=== PATIENT | male | born 1940 | race Caucasian/White ===

== ENCOUNTER → 2017-05-08 | Outpatient (CLI) | payer MEDICARE, OTHER ==
[~2017-05-08] MED LIST: ACETAMINOPHEN325 M1; ACETAMINOPHEN325 M1 PO; ALPRAZOLAM; ALPRAZOLAM 0.50.5 MG PO; AMBIEN 5 MG TABL5 M1 PO; AMBIENCR PO; ASCORBIC ACID500 M1; B COMPLEX PO; BENICAR20 MG; BENICAR20 MG PO; CALCIUM 600 +1 EAC1 PO; CALCIUM PO; CLONAZEPAM 1 MG1 M1 PO; COUMADIN 10MG T10 M1; COUMADIN 5 MG TA5 M1 PO; DOXYCYCLINE HY100 MG PO; ENOXAPARIN100 MG/1 M; ENOXAPARIN100 MG/1 M SQ; EXCEDRIN CAPLE1 EACH PO; FISH OIL 1,0001 EAC7 PO; FISH OIL 1,0001 EAC8 PO; FISH OIL 1,001000 M2 PO; FLONASE 0.05%50 MCG NASAL; FLUCONAZOLE 10100 MG; FLUCONAZOLE 10100 MG PO; FUROSEMIDE 40 M40 M1; FUROSEMIDE 40 M40 M1 PO; HYDROCODONE-AP1 EAC6 PO; IBUPROFEN200 M2 PO; IRON PO; K-DUR 20 MEQ T20 MEQ; K-DUR 20 MEQ T20 MEQ PO; KONSYL; KONSYL PO; KONSYL300 GM PO; LYRICA 75 MG CA75 MG; MEDROL DOSPAK21 TA1 PO; MIRALAX255 GM PO; MOBIC15 MG PO; MOM PO; MULTI-VITAMIN1 EAC5; MULTIVITAMIN PO; MULTIVITAMINS1 EAC7 PO; NEURONTIN 300300 M1 PO; NEXIUM40 MG PO; OMEPRAZOLE-BIC1 EAC1; OMNARIS NASAL; PERCOCET 5-3251 EACH PO; POLYETHYLENE G255 GM; PREDNISONE 20 M20 M1 PO; PRILOSEC40 MG PO; PROMETHAZINE-C120 ML PO; TESSALON PEARLS; TRAMADOL 50 MG50 MG PO; TRILEPTAL150 MG PO; VENTOLIN HFA 1818 GM INH; VIT D3; VITAMINC500 PO; XANAX 0.25 MG0.25 MG PO; XANAX 0.5 MG0.5 MG PO; ZANTAC 150MG T150 MG PO; ZEGERID OTC 201 EACH PO
--- NOTE | 2017-05-10 09:35 | PAINCON ---
[address] [address] PAIN MANAGEMENT CONSULTATION Name: JAZMYN JUSTICE Room: [facility] Haroldo#: [id number] Admission: 05/08/17 Attend Phys: Andrew Kendall Discharge: Date of : 42 Report #: [id number] THIS REPORT FOR: //name// CC: Tino Tim PAIN CLINIC PROCEDURE The patient is a very pleasant 77-year-old gentleman being treated for lumbar radiculopathy, status post extensive decompressive laminectomy and fusion. The patient was seen in the pain clinic on 04/24/2017. We withheld the interventional therapy as he had an appointment to see his back surgeon. 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 Per the patient, (we do not have documentation from Dr. Weir at present). He suggested extending the fusion to include the L1-L2 level. We did review the lumbar spine CT myelogram from 04/08/2017. It does note some mild dextroscoliosis fusion L2 through L5 with bilateral transpedicular screws. The L1-L2 notes narrowing of the spinal canal down to 6 mm in the AP dimension, clumping of the nerve roots here as a result with mild retrolisthesis. Ligamentum flavum hypertrophy is more prominent on the left. Bilateral neural foraminal narrowing. Fusion is noted through L5. L5-S1 notes mild degenerative endplate spurring with diffuse disk bulging, severe facet arthropathy, worse on the right, moderate on the left. The patient presents to the pain clinic today complaining primarily of pain, posterior thigh gluteal area down to the leg, exacerbated with side bending. Appears to be a primary L5 radicular pattern clinically. He had excellent relief with bilateral L5-S1 transforaminal epidural injections back in December. He is requesting that we repeat this injection for transient improvement of symptoms to get through the holidays. He has a followup appointment with Dr. Weir in May. ASSESSMENT: Symptomatic lumbar radiculopathy, status post decompressive laminectomy. PROCEDURE: Bilateral L5-S1 transforaminal epidural injection under fluoroscopy. PROCEDURE #1: Right L5-S1 transforaminal epidural injection. PROCEDURE NOTE: After both written and informed consent was obtained including risk of spinal cord damage, infection, increased pain and paralysis, the patient agreed to proceed. The patient was taken to the fluoroscopy suite, placed in a prone position with appropriate abdominal bolstering. After sterile prep with ChloraPrep and sterile drape, a skin wheal with 1% Xylocaine was raised. A [address] [place] [address] PAIN MANAGEMENT CONSULTATION Name: JAZMYN JUSTICE Room: [facility] MARY BETH [place]#: [id number] Admission: 05/08/17 Attend Phys: Andrew Kendall Discharge: Date of : 42 Report #: [id number] gauge 4-1/2 inch epidural Tuohy needle was inserted. From an oblique approach into the posterior-superior aspect of the right L5-S1 neural foramen with continuous pressure on the glass syringe plunger for loss of resistance. Glass syringe was filled with 2 cc of 0.1 Xylocaine. The glass loss of resistance syringe was removed. A low volume extension tubing was connected, negative aspiration was accomplished for cerebrospinal fluid or blood. 1 mL of Omnipaque was injected which showed spread both within the epidural space and laterally along the nerve root. This was followed with 40 mg of triamcinolone plus 1 mL of 1.5% preservative-free Xylocaine. Needle was partially withdrawn, 0.5 mL of Xylocaine was injected to clear the needle and the needle was removed. The area was cleansed, band-aid was applied. The patient was allowed to ambulate to the recovery room, discharged in good and stable condition. PROCEDURE #2: Left L5-S1 transforaminal epidural injection under fluoroscopy. PROCEDURE NOTE: After both written and informed consent was obtained including risk of spinal cord damage, infection, increased pain and paralysis, the patient agreed to proceed. The patient was taken to the fluoroscopy suite, placed in a prone position with appropriate abdominal bolstering. After sterile prep with ChloraPrep and sterile drape, a skin wheal with 1% Xylocaine was raised. A 22 gauge 4-1/2 inch epidural Tuohy needle was inserted. From an oblique approach into the posterior-superior aspect of the left L5-S1 neural foramen with continuous pressure on the glass syringe plunger for loss of resistance. Glass syringe was filled with 2 cc of 0.1 Xylocaine. The glass loss of resistance syringe was removed. A low volume extension tubing was connected, negative aspiration was accomplished for cerebrospinal fluid or blood. 1 mL of Omnipaque was injected which showed spread both within the epidural space and laterally along the nerve root. This was followed with 40 mg of triamcinolone plus 1 mL of 1.5% preservative-free Xylocaine. Needle was partially withdrawn, 0.5 mL of Xylocaine was injected to clear the needle and the needle was removed. The area was cleansed, band-aid was applied. The patient was allowed to ambulate to the recovery room, discharged in good and stable condition. The patient was monitored for an appropriate period of time and discharged in good and stable condition. <ELECTRONICALLY SIGNED> By: Ciro Tim DO 05/10/17 0935 [id number] [id number] Tim DO /nt
== END | disposition home or self-care (01) ==
LOC: M.PC 03:35
DX: M54.16 Radiculopathy, lumbar region (principal); G89.29 Other chronic pain; Z88.8 Allergy status to other drugs, medicaments and biological substances; Z98.890 Other specified postprocedural states; Z79.899 Other long term (current) drug therapy

== ENCOUNTER 2017-06-26 15:42 | Inpatient (IN) | payer MEDICARE, OTHER ==
[~2017-06-26] VITALS: Ht 175.3 cm; Wt 118.8 kg
[~2017-06-26 15:42] MED LIST changes: -CLONAZEPAM 1 MG1 M1 PO; -FLONASE 0.05%50 MCG NASAL; -HYDROCODONE-AP1 EAC6 PO; -NEXIUM40 MG PO; -TRAMADOL 50 MG50 MG PO
[2017-06-26 15:46] VITALS: BP 172/63
[2017-06-26] MEDS ORDERED: NEXIUM40 MG PO (15:50)
[2017-06-26] MEDS ORDERED: FLONASE 0.05%50 MCG NASAL (15:51)
[2017-06-26 16:15] LABS: ABSOLUTE BASOPHILS 0.1 thou/uL (0.0-0.2); ABSOLUTE EOSINOPHILS 0.2 thou/uL (0.0-0.7); ABSOLUTE LYMPHOCYTES 2.3 thou/uL (0.8-5.3); ABSOLUTE MONOCYTES 0.8 thou/uL (0.0-1.2); ABSOLUTE NEUTROPHILS 4.5 thou/uL (1.6-8.1); BASOPHILS 1.6 %; EOSINOPHILS 2.4 %; HEMOGLOBIN 16.5 gm/dL (14.0-18.0); LYMPHOCYTES 28.9 %; MCHC 33.6 g/dL (28.0-37.0); MCV 95.3 fL (80.0-100.0); MONOCYTES 10.4 %; MPV 8.6 fl. (7.2-11.1); NUCLEATED RBCS 0 /100WBC; PLATELET COUNT* 177 thou/uL (150-400); POLYS 56.7 %; RBC 5.14 mil/uL (4.50-6.00); RDW-CV 14.1 % (10.5-14.5); WBC 7.9 thou/uL (4.0-11.0)
--- NOTE | 2017-06-26 16:27 | NUR ---
DR. UNDERWOOD IN PT'S ROOM
[2017-06-26 16:28] LABS: INR 1.1; PROTIME 10.7 Seconds (9.20-11.50)
[2017-06-26 16:39] LABS: ANION GAP 9 mmol/L (7-16); BUN 18 mg/dL (7-18); CALCIUM 8.8 mg/dL (8.5-10.1); CHLORIDE 107 mmol/L (98-107); CO2 27 mmol/L (21-32); CREATININE 1.1 mg/dL (0.6-1.3); GLUCOSE 98 mg/dL (70-99); POTASSIUM 4.2 mmol/L (3.5-5.1); SODIUM 143 mmol/L (136-145)
[2017-06-26 17:06] LABS: ALKALINE PHOSPHATASE 76 U/L (46-116); LIPASE 166 U/L (73-393); MAGNESIUM 1.9 mg/dL (1.8-2.4); SGOT 15 U/L (15-37); SGPT 21 U/L (30-65); TOTAL BILIRUBIN 0.5 mg/dL (<0.1-1.0)
[2017-06-26 17:07] LABS: ALBUMIN 3.4 g/dL (3.4-5.0); TOTAL PROTEIN 6.8 g/dL (6.4-8.2)
[2017-06-26 17:08] LABS: TROPONIN-I LEVEL <0.06 ng/mL (<0.06)
[2017-06-26 17:51] LABS: NT-PRO BRAIN NAT PEPTIDE 92 pg/mL (<300)
[2017-06-26 18:13] LABS: CK-MB MASS 0.6 ng/mL (<0.5-3.6)
--- NOTE | 2017-06-26 18:39 | NUR ---
PT ADMITED TO TELE FLOOR UNDER THE CARE OF DR SPANN. PT ORIENTED TO UNIT AND SERVICES. FOOD AND DRINK OFFERED. NURSING ASSESSMENT COMPLETED AND DOCUMENTED. PT HR IN THE 30'S TO 40'S W/O C/O SYMPTOMS SUCH BEING DIZZY. PT HAS NO C/O PAIN AT THIS TIME. SEPSIS SCREEN NEG. PT EDUCATED ON ACTIVITY AND FALL PREVENTION, CURRENTLY TRACING SB WITH A BBB ON THE MONITOR. PT HAS NO IMPAIRED SKIN INTEGRITY AND DENIES AND ISSUES WITH BOWEL OR BLADDER CONTROLL ISSUES. NURSING WILL CONTINUE TO MONITOR.
[2017-06-26 20:00] VITALS: BP 133/74
--- NOTE | 2017-06-26 20:00 | NUR ---
CALL PLACED TO CARDIO-AUTO SERVICE MECHANIC REGARDING NO ORDERS NOTED FOR PM PLACEMENT TOMORROW. DR LEBLANC CALLED BACK, INFORMED HIM OF PT'S ADMIT DX, DAY-RN'S REPORT OF PM PLACEMENT TOMORROW, AND INFORMED DR LEBLANC I DO NOT SEE ANY ORDERS FOR SUCH PROCEDURE TOMORROW. DR LEBLANC SAID TO MAKE PT NPO AFTER MIDNIGHT AND DR UNDERWOOD WHO SAW HIM IN THE ED CAN PUT IN ORDERS TOMORROW IF THAT'S WHAT HE'S DOING, DR LEBLANC ASKED WHAT PT'S HR IS AT, INFORMED HIM PT'S HR HAS BEEN IN THE 30'S AND HE IS ASYMPTOMATIC. NPO AT MIDNIGHT ORDER ENTERED.
[2017-06-27] VITALS: BP 148/77
--- NOTE | 2017-06-27 02:37 | NUR ---
PT A/OX4, SB 1D ON THE MONITOR WITH HR MAINTAINING IN THE 30'S, RA, PT REPORTED HE HAS NO DIZZINESS, SOA, DISCOMFORT, EDUCATED PT TO CALL USING CALL LIGHT WHEN HE WANTS TO GET UP TO USE THE BATHROOM OR TO AMBULATE DUE TO LOW HR, MEDS/ASSESSMENT PER CHARTING, HOURLY ROUNDING/FALL PRECAUTIONS IN PLACE, VSS WITH HR IN 30'S, NPO AT THIS POINT, WILL CONT TO MONITOR.
[2017-06-27 04:06] VITALS: BP 120/53
[2017-06-27 05:21] LABS: CALCIUM 8.8 mg/dL (8.5-10.1); CREATININE 1.1 mg/dL (0.6-1.3); MAGNESIUM 1.9 mg/dL (1.8-2.4); POTASSIUM 4.4 mmol/L (3.5-5.1)
[2017-06-27 08:00] VITALS: BP 141/73
--- NOTE | 2017-06-27 08:45 | NUR ---
RECEIVED REPORT. ASSUMED CARE OF PT AT 0730. PT A&O X4. VSS. O2 SAT 93% ON ROOM AIR. COMMUNICATION INSTRUCTOR IN PLACE TRACING SB WITH 1ST DEGREE. PT HR CONSISTENTLY DROPPING INTO THE 30'S AND MAINTAINING THERE - PT ASYMPTOMATIC. IV SALINE LOCKED. PT DENIES PAIN OR DISCOMFORT AT THIS TIME, BUT DOES REPORT A SIGNIFICANT HISTORY OF CHRONIC BACK PAIN AND RIGHT LEG PAIN. PT NPO FOR POTENTIAL PACEMAKER PLACEMENT TODAY. PT INFORMED OF PLAN OF CARE - PT COMMUNICATES UNDERSTANDING. PT UP WITH STANDBY ASSIST TO BATHROOM. LOW FALL RISK PRECAUTIONS IN PLACE. CALL LIGHT IS WITHIN REACH. WILL CONTINUE TO MONITOR.
--- NOTE | 2017-06-27 11:04 | NUR ---
CM ASSESSMENT: Pt is A&O. Resides at home with his . Independent with ADLs. No DME. Hx of home o2. Hx of [facility]. No hx of SNF. Possible pacer placement. Goal is to return home once medically stable for dc. Following.
--- NOTE | 2017-06-27 12:47 | CON ---
[address] [address] CONSULTATION Name: JAZMYN JUSTICE Room: [address] IN [facility]#: [id number] Admission: 06/26/17 Attend Phys: Ran Menendez MD Discharge: Date of : 42 Report #: [id number] THIS REPORT FOR: //name// CC: Vincent Tim DATE OF SERVICE: 06/26/2017 TYPE OF REPORT: Cardiology consultation. HISTORY OF PRESENT ILLNESS: The patient is a 77-year-old white male who I was asked to see seen in the hospital today after he was noted to be bradycardic. The patient has no previous history of heart disease. However, he is not very active because of chronic back pain. He apparently had a stress test years ago. He ambulates with a walker. He has had a total of 10 back surgeries. He denies history of chest pain, shortness of breath, palpitations or syncope. He does have chronic edema. He went to the pain clinic today to have an injection in his back. In the pain clinic, he was noted bradycardia. He was sent over to the Emergency Room and admitted for further evaluation and treatment. Denies any lightheadedness or syncope. Denied any recent tick bite. PAST MEDICAL HISTORY: Otherwise significant for neck surgery, uvulectomy for sleep apnea, shoulder surgery, appendectomy, apparently was admitted at one point with bronchitis of years ago, experience bilateral DVT and bilateral PE. He was on anticoagulation for a while and has an IVC filter placed. He has a history of hypertension, but no history of diabetes or hyperlipidemia. MEDICATIONS: Include Benicar, Lasix, potassium and Neurontin. ALLERGIES: He has intolerance to FLAGYL. FAMILY HISTORY: Positive for heart disease. SOCIAL HISTORY: He is . He and his live here in [place]. He is a retired business chef & owner. Quit smoking in 1998. No alcohol abuse. REVIEW OF SYSTEMS: He has had no history of stroke, asthma, peptic ulcer disease, liver disease, kidney disease, cancer, chronic skin condition or psychiatric illness. PHYSICAL EXAMINATION: GENERAL: Revealed a large and elderly male. VITAL SIGNS: He had a blood pressure of 150/60 and pulse is 40[place] [address] CONSULTATION Name: JAZMYN JUSTICE Room: [address]#: [id number] Admission: 06/26/17 Attend Phys: Ran Menendez MD Discharge: Date of : 41 Report #: [id number] HEENT: He is anicteric. Conjunctivae pink. Mucous membranes moist. NECK: Veins difficult to assess due to obesity. No carotid bruits. CHEST: Clear to auscultation. CARDIOVASCULAR: Regular bradycardia. No significant murmur. ABDOMEN: Obese, soft and nontender. EXTREMITIES: Had trace edema. Dorsalis pedis pulse 1+ bilaterally. SKIN: Cool and dry. RADIOLOGICAL DATA: His ECG appears to show sinus rhythm with 2:1 AV block, left anterior fascicular block and a right bundle-branch block. LABORATORY DATA: Workup in the Emergency Room today revealed a white blood cell count 7.9 and hemoglobin 16.5. IMPRESSION AND RECOMMENDATIONS: 1. A 2:1 atrioventricular block consistent with Mobitz type 2 second-degree atrioventricular block. Suspect idiopathic. The patient is on no medications that would slow atrioventricular node conduction. No evidence of acute myocardial infarction. No history to suggest Lyme disease. I suspect the patient will need a permanent pacemaker. 2. Hypertension. The patient has been on an adrenergic receptor binder. 3. Edema, recommend echo. 4. History of sleep apnea. 5. Chronic back pain. <ELECTRONICALLY SIGNED> By: Clive Benson MD, FACC 06/27/17 1247 1640 2015Clive Benson MD, FACC /nt
--- NOTE | 2017-06-27 14:29 | 2DMMODE ---
[place] [address] 2 D/M-MODE ECHOCARDIOGRAM Name: JAZMYN JUSTICE Room: [address] IN [facility]#: [id number] Admission: 06/26/17 Attend Phys: Ran Menendez, Discharge: Date of : 42 Date of Service: 06/27/17 1429 Report #: [id number] THIS REPORT FOR: //name// APPROVED REPORT Study performed: 06/27/2017 11:46:36 EXAM: Comprehensive 2D, Doppler, and color-flow Echocardiogram Patient Location: In-Patient Room #: 210 Status: routine BSA: 2.28 HR: 51 bpm BP: 120/53 mmHg Rhythm: NSR Other Information Study Quality: Good Indications Abnormal ECG Bradycardia 2D Dimensions LVEF(%): 76.05 (>50%) IVSd: 14.73 (7-11mm) LVOT Diam: 19.79 (18-24mm) LVDd: 49.99 mm PWd: 12.62 (7-11mm) Ascending Ao: 40.22 (22-36mm) LVDs: 27.51 (25-40mm) Aortic Root: 35.03 mm Bates's LVEF: 76.05 % Volumes Left Atrial Volume (Systole) LA ESV Index: 21.00 mL/m2 Aortic Valve AoV Peak Brian.: 1.67 m/s AO Peak Gr.: 11.22 mmHg LVOT Max P.27 mmHg AO Mean Gr.: 6.56 mmHg LVOT Mean P.79 mmHg LVOT Max V: 1.25 m/s AO V2 VTI: 38.71 cm LVOT Mean V: 0.77 m/s ANNAMARIA (VTI): 2.21 cm2 LVOT V1 VTI: 27.82 [place] [address] 2 D/M-MODE ECHOCARDIOGRAM Name: JAZMYN JUSTICE Room: [address] IN [facility].#: [id number] Admission: 06/26/17 Attend Phys: Ran Menendez, Discharge: Date of : 42 Date of Service: 06/27/17 1429 Report #: [id number] E/A Ratio: 0.76 MV Decel. Time: 348.09 ms MV E Max Brian.: 0.70 m/s MV PHT: 100.94 ms MVA (PHT): 2.18 cm2 TDI E/Lateral E': 7.00 E/Medial E': 7.78 Medial E' Brian.: 0.09 m/s Lateral E' Brian.: 0.10 m/s Pulmonary Valve PV Peak Brian.: 0.88 m/s PV Peak Gr.: 3.10 mmHg Tricuspid Valve TR Peak Gr.: 24.14 mmHg RVSP: 29.00 mmHg Left Ventricle The left ventricle is normal size. There is normal LV segmental wall motion. Mild concentric left ventricular hypertrophy. Left ventricular systolic function is normal. LVEF is 55-60%. Grade I - abnormal relaxation pattern. Right Ventricle The right ventricle is normal size. The right ventricular systolic function is normal. Atria The left atrium size is normal. The right atrium size is normal. Aortic Valve The aortic valve is normal in structure. Trace aortic regurgitation. There is no aortic valvular stenosis. Mitral Valve The mitral valve is normal in structure. Trace mitral regurgitation. No evidence of mitral valve stenosis. Tricuspid Valve The tricuspid valve is normal in structure. Trace tricuspid regurgitation. The RVSP is ___29____ mmHg. Pulmonic Valve The pulmonary valve is normal in structure. There is no pulmonic [place] [address] 2 D/M-MODE ECHOCARDIOGRAM Name: JAZMYN JUSTICE Room: [address]#: [id number] Admission: 06/26/17 Attend Phys: Ran Menendez, Discharge: Date of : 42 Date of Service: 06/27/17 1429 Report #: [id number] Great Vessels The aortic root is normal in size. IVC is normal in size and collapses with >50% inspiration Pericardium There is no pericardial effusion. <Conclusion> The left ventricle is normal size. Mild concentric left ventricular hypertrophy. Left ventricular systolic function is normal. LVEF is 55-60%. Grade I - abnormal relaxation pattern. Trace aortic regurgitation. Trace mitral regurgitation. Trace tricuspid regurgitation. The RVSP is ___29____ mmHg. IVC is normal in size and collapses with >50% inspiration <ELECTRONICALLY SIGNED> By: Bunny Nava MD, FACC 06/27/17 [phone] Bunny Nava MD, FACC /INF
--- NOTE | 2017-06-27 14:32 | EKG ---
[place] [address] ELECTROCARDIOGRAM REPORT Name: JAZMYN JUSTICE Room: [address] ADM IN .R.#: [id number] Admission: 06/26/17 Attend Phys: Ran Menendez MD Discharge: Date of : 41 Report #: [id number] THIS REPORT FOR: //name// [facility] ED Test Date: 2017-06-26 Test Time: 15:48:33 Pat Name: JAZMYN JUSTICE Department: Room: [facility] Gender: M Assistant To The Director: Jacqueline CARTER : 1940 Requested By: Calixto Roberts Order Number: [id number] MD: Clive Benson Measurements Intervals [place] Rate: 37 P: 25 CT: 223 QRS: -59 QRSD: 159 T: 76 QT: 542 QTc: 426 Interpretive Statements 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
[2017-06-27 16:00] VITALS: BP 137/65
--- NOTE | 2017-06-27 19:04 | NUR ---
VSS. 02 SAT >90% ON ROOM AIR. PT REMAINS A&OX4. MEDIA/INSTRUCTIONAL DESIGNER IN PLACE WITH NO CHANGES THIS SHIFT. HR CONTINUES TO DROP TO THE 30'S, PT REMAINS ASYMPTOMATIC. PT TO HAVE PACEMAKER PLACEMENT TOMORROW. PT TO BE NPO AFTER MIDNIGHT. IV SALINE LOCKED. PT CONTINUES TO DENY PAIN OR DISCOMFORT THROUGHOUT THE SHIFT. VISITED THIS AFTERNOON. PT EATING AND DRINKING WITHOUT ISSUE. PT UP AD JS TO THE BATHROOM - VOIDING WITHOUT ISSUE. LOW FALL RISK PRECAUTIONS IN PLACE. CALL LIGHT IS WITHIN REACH. HOULRY ROUNDING PERFORMED.
[2017-06-27 20:00] VITALS: BP 143/93
[2017-06-28] VITALS (8 sets, daily range): BP systolic 115–138; BP diastolic 50–84
[2017-06-28 05:48] LABS: CALCIUM 9.2 mg/dL (8.5-10.1); CREATININE 1.2 mg/dL (0.6-1.3); POTASSIUM 5.2 mmol/L (3.5-5.1)
--- NOTE | 2017-06-28 06:39 | NUR ---
NO ACUTE CHANGES WITH PT OVER NIGHT, PT REMAIN A/OX4, SB 1D BBB WITH HR IN THE LOW 30'S, ASYMPTOMATIC, RA, VSS, UP WITH SBA TO THE BATHROOM, MEDS/ASSESSMENT PER CHARTING, HOURLY ROUNDING/FALL PRECAUTIONS IN PLACE, CONSENT FOR PACE MAKER PLACEMENT COMPLETED AND PLACED ON CHART, 1/2NS INFUSING PER ORDERS, PT REPORTED NO PAIN/SOA/DIZZINESS OVER NIGHT, WILL CONT TO MONITOR.
--- NOTE | 2017-06-28 11:24 | NUR ---
ASSUMED CARE OF PT AT 0730. PT RESTING IN BED. PT A&0X4. DENIES ANY PAIN OR SHORTNESS OF BREATH AT THIS TIME. PT NPO FOR PACEMAKER PLACEMENT TODAY. CONSENTS SIGNED AND PLACED IN FRONT OF CHART. PT TRACING SB WITH FIRST DEGREE AND BBB ON THE NATURAL HISTORY COLLECTIONS CURATOR. RATE IN THE 30'S. PT ASYMPTOMATIC. PT ON RA SAT 93%. IVF. PT UP WITH 1 SBA. HUMANITIES INSTRUCTOR HERE TO GET PT AT 0850. 20G IV PLACED IN PT LEFT HAND PER HUMANITIES INSTRUCTOR RN REQUEST. AM ASSESSMENT CHARTED. MEDICATIONS PER JUL. PT REPOSITIONS SELF IN BED WITH REMINDERS. HOURLY ROUNDING OBSERVED. BED IN LOW POSITION. BED ALARM IN PLACE. CALL LIGHT WITHIN REACH. WILL CONTINUE PLAN OF CARE.
--- NOTE | 2017-06-28 15:14 | EKG ---
[place] [address] ELECTROCARDIOGRAM REPORT Name: JAZMYN JUSTICE Room: [address] ADM IN [facility].#: [id number] Admission: 06/26/17 Attend Phys: Ran Menendez MD Discharge: Date of : 42 Report #: [id number] THIS REPORT FOR: //name// [facility] Test Date: 2017-06-28 Test Time: 14:31:09 Pat Name: JAZMYN JUSTICE Department: Room: [address] Gender: M [employer] Groom: [facility] : 1940 Requested By: Lisa Case Order Number: [id number] MD: Clive Benson Measurements Intervals [place] Rate: 60 P: 0 OR: 53 QRS: 262 QRSD: 176 T: 68 QT: 491 QTc: 491 Interpretive Statements Ventricular-paced complexes No further analysis attempted due to paced rhythm Compared to ECG 06/26/2017 15:48:33 ventricular paced rhythm now noted Electronically Signed On 06-28-2017 15:14:16 HELP DESK REP by Clive Benson [email or web address] <ELECTRONICALLY SIGNED> By: Clive Benson MD, [facility] 06/28/17 1514 1431 1431 Clive Benson MD, [facility] /EPI
--- NOTE | 2017-06-28 15:43 | NUR ---
PT BACK FROM PACEMAKER PLACEMENT AT APPROXIMATELY 1300. VSS. REPORT RECEIVED FROM WASTE SALVAGER RN. LEFT CHEST SITE- DERMABOND IN PLACE. LEFT UPPER EXTREMITY IN SLING. ONE LEAD PLACED PER WASTE SALVAGER TECHNICAL HEALTHCARE CONSULTANT AND PT WILL NEED ANOTHER LEAD PLACED OUTPT. PT IS TO BE BEDREST UNTIL 0800 2/3, AREA TO LEFT CHEST TO REMAIN CLEAN AND DRY- NO DRESSING, LEFT ARM TO REMAIN IN SLING AND NOT TO BE LIFTED ABOVE SHOULDER X 1 [address]EEK. CARDIAC REHAB CONSULT IN PLACE. PT GIVEN AM MEDICATIONS PER EMAR. PT COMPLAINED OF GENERALIZED PAIN. TREATED WITH PRN HYDROCODONE WITH PARTIAL RELIEF. AT APPROXIMATELY 1415 PT COMPLAINED OF SHARP CHEST PAIN WHILE BREATHING. VSS. EKG OBTAINED TRACING V PACED. JAZMIN CORMIER, CARDIOLOGY BRADDISHER NOTIFIED. ORDERS RECEIVED FOR STAT PORTABLE CXR. RESULTS SHOWING SMALL SIDE LEFT PNEUMO. JAZMIN CASE NOTIFIED OF RESULTS AND STATED WILL PASS ON TO DR UNDERWOOD. PT STATES PAIN HAS CURRENTLY GOTTEN BETTER. PT RESTING IN BED WITH DAUGHTER AND AT BEDSIDE AT THIS TIME. AWAITING DR FUNEZ VISIT AT THIS TIME. WILL CONTINUE TO MONITOR CLOSELY.
--- NOTE | 2017-06-28 17:16 | NUR ---
NO ACUTE CHANGES THROUGHOUT AFTERNOON. REFER TO CHARTING. AWAITING DR UNDERWOOD ARRIVAL AT THIS TIME. PT PAIN HAS SLIGHTLY IMPROVED THROUGHOUT AFTERNOON. VITAL SIGNS REMAIN STABLE THROUGHOUT AFTERNOON REFER TO CHARTING. PT REMAINS ON RA SAT UPPER 90'S. DENIES ANY SHORTNESS OF BREATH. PT CONTINUES TO TRACE SR WITH BBB/ V- PACED ON THE HEMATOLOGY SPECIALIST. SLING IN PLACE TO LEFT UPPER EXTREMITY. BEDREST UNTIL 0800 06/29/17. PT VOIDS PER URINAL. INPT CARDIAC REHAB NURSE HERE TO SEE AND EDUCATE PT THIS AFTERNOON. MEDICATIONS PER JUL. PT REPOSITIONS SELF IN BED WITH REMINDERS. HOURLY ROUNDING OBSERVED. BED IN LOW POSITION. CALL LIGHT WITHIN REACH. WILL CONTINUE PLAN OF CARE.
[2017-06-29 00:32] VITALS: BP 99/48
[2017-06-29 04:07] VITALS: BP 124/61
--- NOTE | 2017-06-29 04:44 | NUR ---
END SHIFT: PT HAS HAD EPISODES OF SHARP CHEST PAIN WORSE WITH BREATHING AND MOVEMENT ON LEFT SIDE. SUPPORTED AND EDUCATED PATIENT. PAIN PILL GIVEN WITH GOOD RESULT. 2L NC APPLIED FOR COMFORT. POSITION CHANGES AND STRAINING AFFECT PAIN. INCISION IS DRY AND INTACT. VSS. SLIN REMAINS IN PLACE. V PACED ON MONITOR RATE 60. SAFETY PRECAUTIONS IN PLACE. CALL LIGHT IN REACH. PERFORMED HOURLY ROUNDING. AWAITING CHEST XRAY THIS AM. WILL CONT TO MONITOR.
[2017-06-29 08:00] VITALS: BP 115/50
--- NOTE | 2017-06-29 08:30 | NUR ---
ASSUMED CARE OF PT AT 0730. PT RESTING IN BED. PT COMPLAINS OF PAIN TO CHEST AND LEFT SIDE. PT ALSO COMPLAINS OF SHORTNESS OF BREATH NEW THIS AM. 02 SAT 90% ON RA. 2L NC PLACED ON PT AND SAT UP TO 95%. LUNG SOUNDS CLEAR ON RIGHT AND DIMINISHED ON THE LEFT. DR SPANN HERE TO SEE PT. ORDERS RECEIVED FOR IV FENTANYL 50 MCG Q2H PRN AND HYDROCODONE CHANGED TO Q4H PO PRN PAIN. PT TO HAVE REPEAT CXR THIS AM TO CHECK STATUS OF LEFT PNEUMOTHORAX. DR UNDERWOOD HERE TO SEE PT. NO NEW ORDERS RECEIVED. PT TO STAY IN HOSPITAL TODAY AND BE OBSERVED. PT TO INCREASE ACTIVITY TODAY AND MANAGE PAIN. PT A&0X4, ANXIOUS AT TIMES. PT TRACING V-PACED ON THE DEPARTMENT EDITOR. LEFT CHEST PACEMAKER INCISION SITE WITH DERMABOND. SLING IN PLACE. PT UP WITH MIN ASSIST. STERNAL/ PACEMAKER PRECAUTIONS IN PLACE AND PT REINFORCED ON PRECAUTIONS. PT SON FROM [place] AT BEDSIDE THIS AM. AM ASSESSMENT CHARTED. MEDICATIONS PER JUL. PT REPOSITIONS SELF IN BED WITH REMINDERS. HOURLY ROUNDING OBSERVED. BED IN LOW POSITION. BED ALARM IN PLACE. FALL PRECAUTIONS IN PLACE. CALL LIGHT WITHIN REACH. WILL CONTINUE PLAN OF CARE.
--- NOTE | 2017-06-29 09:25 | CARD ---
[address] [address] CARDIAC CATH REPORT Name: DARIUSZJAZMYN Daksha Room: [address] IN ..#: [id number] Admission: 06/26/17 Attend Phys: Ran Menendez MD Discharge: Date of : 42 Report #: [id number] THIS REPORT FOR: //name// APPROVED REPORT Patient Status: In-Patient Room #: Event Personnel: Clive Benson Auto Air Conditioning Installer, Caroline Mishra RN Chief Of Production, Maria Antonia Rivera Monitor, Otto Masterson (Gaye Mcdermott Tina RN Chief Of Production Exam: Insertion of Single Chamber Permanent Pacemaker Indications: 2nd Degree Mobitz II The patient is a 77 year-old male with a history of 2nd Degree Mobitz II. Patient Info BUN: 17 Creatine: 1.2 Conscious Sedation Start time: 09:53 End Time: 12:38 Fentanyl 300 mcg Versed 7 mg Procedure The patient underwent informed consent. We discussed the details of the procedure including the risks, which include, but not limited to bleeding, infection, vascular damage, cardiac perforation, and pneumothorax. He understood these risks and was willing to proceed. As such, he was brought to the EP/Cardiac Catheterization laboratory in a fasting and sedated state and prepped and draped in a sterile fashion, received IV antibiotics prior to initiation of the procedure and a venogram was performed showing patency of the left axillary vein. The patient underwent conscious sedation, with no related complications. The patient was brought to the EP/Cardiac Catheterization laboratory and the left chest and shoulder were prepped and draped in a sterile manner. During this case, Fluoroscopy and visipaque 20cc were used for imaging. The left subclavian region was infiltrated with 2% Lidocaine subcutaneous anesthesia. A transverse incision was made in the left upper chest cavity. The subcutaneous pocket was formed via blunt dissection. Percutaneous venous access was achieved and an introducer sheath was inserted into the [place] [address] CARDIAC CATH REPORT Name: JAZMYN JUSTICE Room: [address] IN [facility].#: [id number] Admission: 06/26/17 Attend Phys: Ran Menendez MD Discharge: Date of : 41 Report #: [id number] Sheaths were positions using the modified Seldinger technique Through the introducer sheaths the ventricular lead wire was positioned in the right atrial appendage and right ventricular apex respectively. Capturing and sensing thresholds were verified. Because of tortuosity of the left subclavian vein, there was difficulty placing the atrial lead. Additional efforts included performing a second subclavian vein puncture. After repeated efforts, it was decided to place only a ventricular lead and program VVIR pacing. During ventricular pacing, there was no significant drop in BP to suggest pacemaker syndrome. Electrode Parameters R Wave: 8 mv Ventricular Threshold: 1.2 v @ 0.4 ms Ventricular Resistance: 780 Single Chamber The ventricular lead was attached to the appropriate receptacle on the pulse generator and set screws firmly tightened to insure adequate contact and stability. The lead and pulse generator were placed into the subcutaneous pocket. Sharp and sponge counts were confirmed to be correct. At this time the pocket was closed subcutaneously with a 0 Vicryl and the skin was closed with a 4.0 Vicryl. The operative site was dressed in sterile fashion with skin affix and the patient was transferred to the floor in stable condition. Complications The patient tolerated the procedure well and there were no complications associated with the procedure. Findings Specimens Removed: No Estimated Blood Loss: 20 cc Conclusion 1. Inability to place an atrial pacing lead 2. successful placement of a ventricular pacing lead and generator <ELECTRONICALLY SIGNED> By: Clive Benson MD, FACC 06/29/17924 4 4Dajeremiah Benson MD, FACC /INF
--- NOTE | 2017-06-29 12:14 | EKG ---
[place] [address] ELECTROCARDIOGRAM REPORT Name: JAZMYN JUSTICE Room: [address] ADM IN M.R.#: [id number] Admission: 06/26/17 Attend Phys: Ran Menendez MD Discharge: Date of : 41 Report #: [id number] THIS REPORT FOR: //name// [facility] Test Date: 2017-06-29 Test Time: 08:21:10 Pat Name: JAZMYN JUSTICE Department: Room: [address] Gender: M Hand Quilter: 28 : 1940 Requested By: Clive Benson Order Number: [id number] Reading MD: Narinder Pollard Measurements Intervals [place] Rate: 60 P: 0 AL: QRS: 267 QRSD: 166 T: 72 QT: 474 QTc: 474 Interpretive Statements Complete AV block with wide QRS complex Nonspecific IVCD with LAD Compared to ECG 06/28/2017 14:31:09 AV block, complete (third-degree) now present Intraventricular conduction delay now present Ventricular-paced complex(es) or rhythm no longer present Electronically Signed On 06-29-2017 12:14:18 STONECUTTER by Narinder Pollard [email or web address] <ELECTRONICALLY SIGNED> By: Narinder Pollard MD, FAC 06/29/17 1214 0 0 Narinder Pollard MD, FAC /EPI
--- NOTE | 2017-06-29 12:15 | EKG ---
[place] [address] ELECTROCARDIOGRAM REPORT Name: JAMZYN JUSTICE Room: [address] ADM IN M.R.#: [id number] Admission: 06/26/17 Attend Phys: Ran Menendez MD Discharge: Date of : 41 Report #: [id number] THIS REPORT FOR: //name// [facility] Test Date: 2017-06-29 Test Time: 08:22:47 Pat Name: JAZMYN JUSTICE Department: Room: [address] Gender: M Dictating Transcribing Machine Servicer: 28 : 1940 Requested By: Clive Benson Order Number: [id number] Reading MD: Narinder Pollard Measurements Intervals [place] Rate: 60 P: [place]: QRS: 265 QRSD: 169 T: 69 QT: 482 QTc: 482 Interpretive Statements chb Nonspecific IVCD with LAD Inferolateral infarct, acute Anterior infarct, possibly acute Compared to ECG 06/28/2017 14:31:09 Junctional rhythm now present Intraventricular conduction delay now present Myocardial infarct finding now present Ventricular-paced complex(es) or rhythm no longer present Electronically Signed On 06-29-2017 12:14:56 ELEMENTARY SCHOOL SCIENCE TEACHER by Narinder Pollard [email or web address] <ELECTRONICALLY SIGNED> By: Narinder Pollard MD, FACC 06/29/17 1214 08 0822 Narinder Pollard MD, FACC /EPI
[2017-06-29 12:46] VITALS: BP 106/52
[2017-06-29 17:01] VITALS: BP 110/74
--- NOTE | 2017-06-29 18:08 | NUR ---
NO ACUTE CHANGES THROUGHOUT SHIFT. REFER TO CHARTING. PT CONTINUES TO COMPLAIN OF PAIN TO CHEST AND LEFT SIDE. TREATED WITH SCHEDULED FENTANYL IVP AND PO HYDROCODONE WITH PARTIAL RELIEF. REFER TO EMAR. PT UP TO RECLINER MULTIPLE TIMES THROUGHOUT SHIFT. PT HAD REPEAT CXR TODAY SHOWING PERSISTENT LEFT PNEUMOTHORAX OR PNEUMOMEDIASTINUM, MINOR INCREASE IN BASILAR ATELECTASIS. PT CONTINUES TO COMPLAIN OF SHORTNESS OF BREATH. ON 2L NC SAT 95%. CONTINUES TO TRACE V PACED ON THE PICK OUT HAND. PT UP WITH 1 ASSIST. NWAmada ROSENE DERMABOND TO LEFT CHEST AREA FROM PACEMAKER INCISION SITE. DAUGHTER AT BEDSIDE THROUGHOUT SHIFT. POSSIBLE DISCHARGE HOME TOMORROW. MEDICATIONS PER JUL. PT REPOSITIONS SELF IN BED WITH REMINDERS. HOURLY ROUNDING OBSERVED. BED IN LOW POSITION. CALL LIGHT WITHIN REACH. WILL CONTINUE PLAN OF CARE.
[2017-06-29 21:00] VITALS: BP 136/66; BP 175/46
[2017-06-30 00:10] VITALS: BP 125/61
[2017-06-30 04:08] VITALS: BP 126/75
[2017-06-30 08:10] VITALS: BP 132/65
--- NOTE | 2017-06-30 08:57 | NUR ---
PT A/OX4, BBB ON THE MONITOR, PACEMAKER SITE SLIGHTLY RED, SORE PER PT, PT EXPRESSED ON/OFF PAIN TO THE LEFT RIB AREA WHEN MOVING, FENTANLY Q2 HOURS AVAIBLAE AND PT UTILIZED X3 OVER NIGHT, PT UP SBA, VSS, MEDS/ASSESSMENT PER CHARTING, HOURLY ROUNDING/FALL PRECAUTIONS IN PLACE, REPORT GIVEN TO DAY RN.
--- NOTE | 2017-06-30 09:00 | NUR ---
ASSUMED CARE OF PT AT 0730. PT SITTING UP IN THE RECLINER WAITING FOR BREAKFAST. PT A&0X4, COMPLAINS OF PAIN TO CHEST AND LEFT SIDE. TREATED WITH PRN IV FENTANYL. PT GOAL FOR TODAY IS TO MANAGE PAIN WITH PO MEDS AND OFF IV PAIN MEDICATIONS IN HOPES OF DISCHARGE THIS AFTERNOON. PT TRACING VPACED ON THE SECURITY MANAGER. ON RA SAT UPPER 90'S. DENIES ANY SHORTNESS OF BREATH. PT TO HAVE REPEAT CXR TODAY. LEFT CHEST INCISION WITH DERMABOND IN PLACE. PT UP WITH SBA TO BATHROOM, LUE WT BEARING LIMITATIONS. PT REINFORCED OF RESTRICTIONS. AM ASSESSMENT CHARTED. MEDICATIONS PER JUL. PT REPOSITIONS SELF IN BED WITH REMINDERS. HOURLY ROUNDING OBSERVED. BED IN LOW POSITION. CALL LIGHT WITHIN REACH. WILL CONTINUE PLAN OF CARE.
[2017-06-30 12:13] VITALS: BP 111/66
[2017-06-30] MEDS ORDERED: HYDROCODONE-AP1 EAC6 PO (13:09)
[2017-06-30 14:01] VITALS: BP 138/84
--- NOTE | 2017-06-30 16:58 | NUR ---
PT PROGRESSED TOWARDS GOALS WELL TODAY. AMBULATED IN THE HALLWAY WITHOUT DIFFICULTY. PT ABLE TO TRANSITION TO PO PAIN MEDICATION WITH RELIEF. REPEAT CXR SHOWING UNCHANGED PNEUMO AND QUESTIONABLE LEFT BASILAR INFILTRATES. DISCHARGE ORDERS RECEIVED. DISCHARGE INSTRUCTIONS, CARE NOTES, SCRIPTS AND FOLLOW UP APPTS GIVEN TO PT. PT COMMUNICATES UNDERSTANDING OF DISCHARGE TEACHING. PT COMMUNICATES UNDERSTANDING OF LEFT UPPER EXTREMITY RESTRICTIONS. IV AND MANAGER OF RADIOLOGY REMOVED. PT DISCHARGED WITH ALL BELONGINGS AND PAPERWORK VIA WHEELCHAIR WITH NURSING STAFF TO DAUGHTERS OWN PERSONAL VEHICLE.
--- NOTE | 2017-07-01 07:21 | PAINCON ---
[address] [address] PAIN MANAGEMENT CONSULTATION Name: JAZMYN JUSTICE Room: [address] IN M.R.#: [id number] Admission: 06/26/17 Attend Phys: Ran Menendez MD Discharge: 06/30/17 Date of : 41 Report #: [id number] THIS REPORT FOR: //name// CC: Dr. Carmella Tim The patient is a very pleasant 77-year-old gentleman long known to the pain clinic, being treated for lumbar radiculopathy, status post decompressive laminectomy and fusion from L3 to L5. Returns to pain clinic today. He prior had bilateral transforaminal L5-S1 epidural injection on 05/08/2017 with good overall short-term improvement of baseline pain. Returns to pain clinic today. He has seen his neurosurgeon at [facility] (Dr. Weir). Dr. Weir has asked that we proceed with a right L5 selective nerve root block today to evaluate efficacy. The patient has ongoing pain in the right buttock, posterior leg, exacerbated by leaning to the right. Selective nerve root block was accomplished today. The patient had excellent improvement of pain with just local anesthetic along the right L5 nerve root. Unfortunately, he did have some bradycardia in the recovery room. He felt good. No "lightheadedness" was noted. Blood pressure remained stable. I did, however, out of caution have the patient report to the Emergency Room for EKG and evaluation if needed. ASSESSMENT: Symptomatic lumbar radiculopathy, status post decompressive laminectomy with right L5 radicular pain. PROCEDURE: Right L5 selective nerve root block. PROCEDURE NOTE: After written informed consent was obtained, the patient was taken to the fluoroscopy suite, placed in prone position. After sterile prep and drape, skin was raised. A 22-gauge stylet needle was placed to contact posterior aspect of the right L5-S1 neural foramen at the 11 o'clock position. AP and lateral projections showed good needle placement. 1 mL of Omnipaque injected showed spread along the nerve root. There was no spread into the epidural space. A 1.5 mL of a 50:50 mix of 0.5% preservative-free bupivacaine plus 1% Xylocaine with 1:200,000 epi. Needle was removed. The area was cleansed, Band-Aids applied. The patient was allowed to ambulate to the recovery room. Again, dramatic improvement of pain. In fact, it was noted his pain was absent. He could bend to the right without "pinching" at right L5 nerve root. The patient was monitored for an appropriate period of time. Blood pressure remains stable. Respiration remains stable, but [place] [address] PAIN MANAGEMENT CONSULTATION Name: JAZMYN JUSTICE Room: [address]#: [id number] Admission: 06/26/17 Attend Phys: Ran Menendez MD Discharge: 06/30/17 Date of : 41 Report #: [id number] into the 30s. The patient was transferred to the Emergency Room for further evaluation. He was admitted with diagnosis of a new bundle branch block. It does appear that the right L5 nerve root is the primary pain generator. He may benefit from extending the fusion to minimize movement at this joint versus a foraminotomy (?). Thank you for allowing me to participate in the patient's care. <ELECTRONICALLY SIGNED> By: Ciro Tim DO 07/01/17 0721 1607 [id number] Tim DO /nt
--- NOTE | 2017-07-02 16:11 | NUR ---
Spoke with patient by phone, states he is doing well no c/o, appetite is good, got all his medications filled, is getting around in the house without problems, has seen his primary DrMiranda in follow up, and his pacer insertion site incision is healing well without S/S of infection. He had no concerns at this time.
[2017-12-26] MEDS ORDERED: HYDROCODONE-AP1 EAC6 PO (13:02)
[2017-12-30] MEDS ORDERED: TRAMADOL 50 MG50 MG PO (09:55)
== END 2017-06-30 16:58 | disposition home or self-care (01) | DRG 243 ==
LOC: M.2W 16:57 → M.TBA-ER 16:57 → M.2W 17:52
PROVIDERS: Family Medicine; ADMIT Internal Medicine
PROC: 3E0T3BZ Introduction of Anesthetic Agent into Peripheral Nerves and Plexi, Percutaneous Approach (ICD-10-PCS; principal; 2017-06-26)
PROC: 02HK3JZ Insertion of Pacemaker Lead into Right Ventricle, Percutaneous Approach (ICD-10-PCS; 2017-06-29)
PROC: 0JH604Z Insertion of Pacemaker, Single Chamber into Chest Subcutaneous Tissue and Fascia, Open Approach (ICD-10-PCS; 2017-06-29)
DX: I44.1 Atrioventricular block, second degree (principal); I50.32 Chronic diastolic (congestive) heart failure; M54.16 Radiculopathy, lumbar region; I10 Essential (primary) hypertension; G89.29 Other chronic pain; M54.9 Dorsalgia, unspecified; K21.9 Gastro-esophageal reflux disease without esophagitis; E66.9 Obesity, unspecified; Z68.38 Body mass index [BMI] 38.0-38.9, adult; Z90.49 Acquired absence of other specified parts of digestive tract; Z79.899 Other long term (current) drug therapy; Z86.718 Personal history of other venous thrombosis and embolism; Z86.711 Personal history of pulmonary embolism; Z82.49 Family history of ischemic heart disease and other diseases of the circulatory system; Z87.891 Personal history of nicotine dependence; Z88.1 Allergy status to other antibiotic agents; Z88.8 Allergy status to other drugs, medicaments and biological substances; Z88.5 Allergy status to narcotic agent

== ENCOUNTER → 2017-07-01 | Outpatient (CLI) | payer MEDICARE, OTHER ==
[~2017-07-01] MED LIST changes: +CLONAZEPAM 1 MG1 M1 PO; +FLONASE 0.05%50 MCG NASAL; +HYDROCODONE-AP1 EAC6 PO; +NEXIUM40 MG PO; +TRAMADOL 50 MG50 MG PO
== END ==
LOC: M.RAD 14:26
DX: S22.42XA Multiple fractures of ribs, left side, initial encounter for closed fracture (principal); J15.8 Pneumonia due to other specified bacteria; Z95.0 Presence of cardiac pacemaker; X58.XXXA Exposure to other specified factors, initial encounter; Y93.89 Activity, other specified; Y92.89 Other specified places as the place of occurrence of the external cause; Y99.8 Other external cause status

== ENCOUNTER → 2017-07-29 | Outpatient (CLI) | payer MEDICARE, OTHER | LOC: M.RAD 14:23 | DX: J15.8 Pneumonia due to other specified bacteria (principal); J95.811 Postprocedural pneumothorax ==

== ENCOUNTER → 2017-09-11 | Outpatient (CLI) | payer MEDICARE, OTHER ==
--- NOTE | 2017-09-14 09:57 | PAINCON ---
[address] [address] PAIN MANAGEMENT CONSULTATION Name: JAZMYN JUSTICE Room: [facility] Haroldo#: [id number] Admission: 09/11/17 Attend Phys: Andrew Kendall Discharge: Date of : 41 Report #: [id number] THIS REPORT FOR: //name// CC: Vincent Tim The patient is a 77-year-old gentleman, well known to pain clinic, typically treated for lumbar radiculopathy status post decompressive laminectomy, fusion from L3 through S1. Last visit 06/26/2017, requested by surgeon, we had proceeded with a right L5 selective nerve root block. This afforded dramatic short term relief of his right L5 radicular pain. Unfortunately, he was found to be bradycardic, we referred him to the ER at that time. He was admitted to the hospital, ultimately had a pacemaker implanted. This did not go well, they apparently only able to get a ventricular lead placed and he did develop a pneumothorax. Nonetheless, he returns to pain clinic today doing reasonably well, but is having ongoing radicular pain, right L5 pattern with burning dysesthesia and weakness down that leg. Discussion with the patient about therapeutic options. Surgeon had suggested that further surgery in his back would be quite extensive and the patient with his host of comorbidities is not a good surgical candidate. After a long discussion today, we elected to proceed with a right L5-S1 transforaminal epidural injection with steroid (prior diagnostic block was done with simply local anesthetic). If this affords good and termite renewal inspector relief, i.e., several months, we can consider repeating that injection as needed. If, however, the patient has only short term relief and/or nominal relief, we can consider increasing his gabapentin (currently 400 mg b.i.d.). He may be a candidate for a spinal cord stimulator, which would be an excellent way to manage his radicular pain status post decompressive laminectomy (failed back surgery with fusion). However, the patient believes that the stimulator may be Contraindicated due to his pacemaker. I believe we have patients that have both devices in place. I will reach out to some of the device representatives and see if there is any specific contraindication for high frequency spinal cord stimulator with pacemaker. ASSESSMENT: Symptomatic lumbar radiculopathy, status post decompressive laminectomy. PROCEDURE: Transforaminal epidural injection under fluoroscopy. PROCEDURE NOTE: After both written and informed consent was obtained including risk of spinal cord damage, infection, increased pain and paralysis, the patient agreed to proceed. The patient was taken to the fluoroscopy suite, placed in a prone position with appropriate abdominal bolstering. After sterile prep with ChloraPrep and sterile drape, a skin wheal with 1% Xylocaine was raised. A [address] [place] [address] PAIN MANAGEMENT CONSULTATION Name: DARIUSZJAZMYN [id number] Admission: 09/11/17 Attend Phys: Andrew Kendall Discharge: Date of : 41 Report #: [id number] gauge 4-1/2 inch epidural Tuohy needle was inserted. From an oblique approach into the posterior-superior aspect of the left L5-S1 neural foramen with continuous pressure on the glass syringe plunger for loss of resistance. Glass syringe was filled with 2 cc of 0.1 Xylocaine. The glass loss of resistance syringe was removed. A low volume extension tubing was connected, negative aspiration was accomplished for cerebrospinal fluid or blood. 1 mL of Omnipaque was injected which showed spread both within the epidural space and laterally along the nerve root. This was followed with 80 mg of triamcinolone plus 1 mL of 1.5% preservative-free Xylocaine. Needle was partially withdrawn, 0.5 mL of Xylocaine was injected to clear the needle and the needle was removed. The area was cleansed, band-aid was applied. The patient was allowed to ambulate to the recovery room, discharged in good and stable condition. <ELECTRONICALLY SIGNED> By: Ciro Tim DO 09/14/17 0957 1229 [id number] Tim DO /nt
== END | disposition home or self-care (01) ==
LOC: M.PC 02:54
DX: M54.16 Radiculopathy, lumbar region (principal); G89.29 Other chronic pain; Z98.890 Other specified postprocedural states; Z88.8 Allergy status to other drugs, medicaments and biological substances; Z79.899 Other long term (current) drug therapy; Z79.891 Long term (current) use of opiate analgesic

== ENCOUNTER → 2017-12-26 | Outpatient (CLI) | payer MEDICARE, OTHER ==
--- NOTE | 2018-01-10 08:37 | PAINCON ---
[address] [address] PAIN MANAGEMENT CONSULTATION Name: JAZMYN JUSTICE [facility] [id number] Admission: 12/26/17 Attend Phys: Viviane Segundo MD Discharge: Date of : 41 Report #: [id number] THIS REPORT FOR: //name// CC: Vincent Johns DATE OF SERVICE: 12/26/2017 CHIEF COMPLAINT: Pain in the back that is going down into the right leg. HISTORY OF PRESENT ILLNESS: The patient is a 77-year-old gentleman who has been followed in the pain clinic by Dr. Ciro Tim. This is my first time visit with the patient. He has a history of back problems. He has undergone lumbar surgery for decompression laminectomy and had a fusion at the L3 through the S1 area. He does have rods and pedicle screws in place. He has noted over the last few days that his pain has gotten significantly worse. If he sits in an upright position and leans back somewhat he feels a shooting, knife-like sensation down into his right leg. Also, has some pain and discomfort in the leg, but is not quite as painful. States that yesterday, his pain was very debilitating. He has undergone epidural steroid injections in the past. He has returned to the pain clinic and would like to undergo epidural injection at this juncture. His son is at [facility]. He has undergone a triple bypass. Walking from the parking lot to his son's room was excruciating. ALLERGIES: TAPE, CEPHALOSPORINS, MORPHINE, FLAGYL, LEVAQUIN, AND LYRICA. CURRENT MEDICATIONS: Alprazolam 0.5 mg, vitamin C, fish oil 1000 mg, Lasix 40 mg, Neurontin 300 mg t.i.d., multivitamin without iron, Benicar 20 mg, Prilosec 40 mg 1 tablet b.i.d., potassium 20 mEq, Psyllium Husk 300 grams, Zantac 300 mg daily, Ambien, B complex, calcium, vitamin D3, hydrocodone 5/325, and tramadol 50 mg. PAST MEDICAL HISTORY: 1. Bradycardia - pacemaker placed. 2. Bronchitis. 3. Hypertension. 4. Sleep apnea. 5. Blood clots. 6. Hyperlipidemia. 7. GERD. 8. Diverticulosis. 9. Retinal tear. PAST SURGICAL HISTORY: Back surgery, L5-S1 disk fusion, neck surgery, rotator cuff surgery, appendectomy, and filter placed in the aorta. [place] [address] PAIN MANAGEMENT CONSULTATION Name: JAZMYN JUSTICE Room: [facility]#: [id number] Admission: 12/26/17 Attend Phys: Viviane Segundo MD Discharge: Date of : 41 Report #: [id number] 10 back surgeries between 2007 and 2011. SOCIAL HISTORY: He is retired. Denies use of tobacco at this juncture. Alcohol, occasional. PAIN CLINIC ASSESSMENT: 1. History of arthritic changes in the lower portion of his back. 2. Height 5 feet 9 inches, weight 264 pounds, BMI is 39. 3. Vitals, blood pressure 142/82, heart rate 79, respiratory rate 18, room air saturation is 92%, temperature 98.0 pain score 5/10. 4. Fall risk. The patient has not fallen in the last 3 months. 5. Blood thinner. The patient is not on a blood thinning medication. 6. Hypertension. The patient is not being treated for hypertension. 7. Opioid therapy greater than 6 weeks. The patient is not on chronic opioid therapy. 8. Risk assessment tool. 9. Functional assessment tool. 10. Recreational drug use. The patient denies use of recreational drugs. 11. Tobacco: The patient denies use of tobacco products. PHYSICAL EXAMINATION: GENERAL: The patient is a well-developed white male, appears his stated age. He is alert and oriented x 3. Affect is appropriate. Speech is fluid. NECK: Without JVD or adenopathy. HEART: Regular rate. LUNGS: Clear to auscultation. Decreased breath sounds. ABDOMEN: Protuberant. MUSCULOSKELETAL: The patient has a well-healed scar in the lower portion of his back from approximately L2 to the sacral area. Upper extremity muscle strength is judged to be 4+/5 with symmetry. Lower extremity, the patient has pain and discomfort in his back with pain radiating into the right leg down to the posterior portion of his calf in the L5-S1 distribution. The patient walks with a slightly antalgic gait, using his walker. IMPRESSION: 1. Exacerbation of lumbar radiculopathy. 2. Bradycardia - pacemaker placed. 3. Bronchitis. 4. Hypertension. 5. Sleep apnea. 6. Blood clots. 7. Hyperlipidemia. 8. Gastroesophageal reflux disease. 9. Diverticulosis. 10. [place] [address] PAIN MANAGEMENT CONSULTATION Name: JAZMYN JUSTICE Room: [facility]#: [id number] Admission: 12/26/17 Attend Phys: Viviane Segundo MD Discharge: Date of : 42 Report #: [id number] RECOMMENDATIONS: We discussed treatment options with the patient. Risks and benefits of an epidural steroid using a transforaminal approach were discussed. The patient has had this performed in the past and feels like he has got between 3-4 months of improvement. He would like to proceed with this treatment at this juncture. He finds this pain is quite problematic. It is severely limiting his ability to engage in activities. He is having pain and would like to proceed with the procedure. Risks and benefits of a transforaminal epidural steroid injection were again reviewed. They include but are not limited to infection, worsening of pain, no improvement in pain, bleeding, spinal headache, infection, and the patient elects to proceed. PROCEDURE NOTE: The patient was placed in the prone position. Fluoroscopy was used to identify the right L5-S1 area. This area was sterilely prepped with a Betadine solution. A 22-gauge 6-inch Chiba needle was then advanced into the appropriate area. Fluoroscopy using anterior, posterior as well as lateral viewing to confirm appropriate placement. Total of 40 mg triamcinolone and 80 mg of Depo-Medrol were injected. The patient tolerated the procedure well. He was taken to the recovery room. There was no bleeding. A Band-Aid was placed. He will continue with his current medical regimen. He will call us if he has any concerns. We would like to thank you for letting us participate in his care. We hope he continues to improve. <ELECTRONICALLY SIGNED> By: Viviane Segundo MD 01/10/18 0837 1504 [id number]. Zain Segundo MD /romina
== END | disposition home or self-care (01) ==
LOC: M.PC 09:06
DX: M54.16 Radiculopathy, lumbar region (principal); G89.29 Other chronic pain; I10 Essential (primary) hypertension; E78.5 Hyperlipidemia, unspecified; R00.1 Bradycardia, unspecified; G47.33 Obstructive sleep apnea (adult) (pediatric); J40 Bronchitis, not specified as acute or chronic; K21.9 Gastro-esophageal reflux disease without esophagitis; Z87.19 Personal history of other diseases of the digestive system; Z98.890 Other specified postprocedural states; Z95.0 Presence of cardiac pacemaker; Z79.899 Other long term (current) drug therapy; Z79.891 Long term (current) use of opiate analgesic; Z88.8 Allergy status to other drugs, medicaments and biological substances

== ENCOUNTER 2018-01-02 05:24 | Emergency (ER) | payer MEDICARE, OTHER ==
[~2018-01-02] VITALS: Ht 175.3 cm; Wt 117.9 kg
[~2018-01-02 05:24] MED LIST changes: -CLONAZEPAM 1 MG1 M1 PO
[2018-01-02 06:19] LABS: ABSOLUTE BASOPHILS 0.1 thou/uL (0.0-0.2); ABSOLUTE EOSINOPHILS 0.1 thou/uL (0.0-0.7); ABSOLUTE LYMPHOCYTES 1.9 thou/uL (0.8-5.3); ABSOLUTE MONOCYTES 0.9 thou/uL (0.0-1.2); BASOPHILS 0.6 %; EOSINOPHILS 0.9 %; HEMATOCRIT 53.5 % (42.0-52.0); HEMOGLOBIN 17.7 gm/dL (14.0-18.0); LYMPHOCYTES 19.6 %; MCH 32.1 pg (26.0-34.0); MCV 97.1 fL (80.0-100.0); MONOCYTES 8.7 %; MPV 8.6 fl. (7.2-11.1); NUCLEATED RBCS 0 /100WBC; PLATELET COUNT* 199 thou/uL (150-400); POLYS 70.2 %; RBC 5.51 mil/uL (4.50-6.00); RDW-CV 14.6 % (10.5-14.5); WBC 9.9 thou/uL (4.0-11.0)
[2018-01-02 06:23] LABS: CALCIUM 9.2 mg/dL (8.5-10.1); CREATININE 1.1 mg/dL (0.6-1.3); POTASSIUM 4.9 mmol/L (3.5-5.1)
[2018-01-02 06:28] LABS: ALBUMIN 3.8 g/dL (3.4-5.0); TOTAL BILIRUBIN 0.8 mg/dL (<0.1-1.0)
[2018-01-02] MEDS ORDERED: CLONAZEPAM 1 MG1 M1 PO (08:16)
[2018-01-02 08:28] VITALS: BP 174/97
== END 2018-01-02 08:28 | disposition home or self-care (01) ==
LOC: M.ERS 05:24
PROVIDERS: Emergency Medicine
DX: G89.29 Other chronic pain (principal); M54.5 Low back pain; I10 Essential (primary) hypertension; G47.30 Sleep apnea, unspecified; Z90.49 Acquired absence of other specified parts of digestive tract; Z88.1 Allergy status to other antibiotic agents; Z88.6 Allergy status to analgesic agent; Z88.8 Allergy status to other drugs, medicaments and biological substances

== ENCOUNTER → 2018-03-03 | Outpatient (CLI) | payer MEDICARE, OTHER ==
[~2018-03-03] MED LIST changes: +CLONAZEPAM 1 MG1 M1 PO
--- NOTE | 2018-03-03 13:48 | 2DMMODE ---
[place] [address] 2 D/M-MODE ECHOCARDIOGRAM Name: JAZMYN JUSTICE Room: [facility]#: [id number] Admission: 03/03/18 Attend Phys: Radha Lainez Discharge: Date of : 42 Date of Service: 03/03/18 1348 Report #: [id number] THIS REPORT FOR: //name// APPROVED REPORT Study performed: 03/03/2018 10:20:58 EXAM: Comprehensive 2D, Doppler, and color-flow Echocardiogram Patient Location: Out-Patient Status: routine BSA: 2.26 HR: 72 bpm BP: 120/53 mmHg Other Information Study Quality: Fair Indications Peripheral Edema Hypertension/HDD 2D Dimensions IVSd: 10.77 (7-11mm) LVOT Diam: 20.24 (18-24mm) LVDd: 53.02 mm Ascending Ao: 36.81 (22-36mm) LVDs: 33.04 (25-40mm) Aortic Root: 34.17 mm Volumes Left Atrial Volume (Systole) LA ESV Index: 13.50 mL/m2 Aortic Valve AoV Peak Brian.: 0.92 m/s AO Peak Gr.: 3.36 mmHg LVOT Max P.31 mmHg AO Mean Gr.: 1.77 mmHg LVOT Mean P.14 mmHg LVOT Max V: 0.76 m/s AO V2 VTI: 12.47 cm LVOT Mean V: 0.49 m/s ANNAMARIA (VTI): 2.80 cm2 LVOT V1 VTI: 10.84 cm Mitral Valve MV Decel. Time: 120.17 ms MV E Max Brian.: 0.92 m/s MV PHT: 34.85 [place] [address] 2 D/M-MODE ECHOCARDIOGRAM Name: JAZMYN JUSTICE Room: [facility]#: [id number] Admission: 03/03/18 Attend Phys: Radha Lainez Discharge: Date of : 42 Date of Service: 03/03/18 1348 Report #: [id number] MVA (PHT): 6.31 cm2 TDI E/Lateral E': 4.38 E/Medial E': 6.13 Medial E' Brian.: 0.15 m/s Lateral E' Brian.: 0.21 m/s Pulmonary Valve PV Peak Brian.: 0.92 m/s PV Peak Gr.: 3.36 mmHg Tricuspid Valve RAP Estimate: 5.00 mmHg TR Peak Gr.: 18.72 mmHg RVSP: 23.72 mmHg PA Pressure: 23.72 mmHg Left Ventricle The left ventricle is normal size. There is normal LV segmental wall motion. There is normal left ventricular wall thickness. Left ventricular systolic function is normal. The left ventricular ejection fraction is within the normal range. LVEF is 50-55%. The left ventricular diastolic function is normal. Right Ventricle The right ventricle is normal size. The right ventricular systolic function is normal. Pacemaker lead is present in the right ventricle. Atria The left atrium size is normal. Pacemaker lead is present in the right atrium. Aortic Valve The aortic valve is normal in structure. Trace aortic regurgitation. There is no aortic valvular stenosis. Mitral Valve The mitral valve is normal in structure. Trace mitral regurgitation. No evidence of mitral valve stenosis. Tricuspid Valve The tricuspid valve is normal in structure. Trace to mild tricuspid regurgitation. Pulmonic Valve Pulmonic valve is not well visualized. There is no [place]mon[place] [address] 2 D/M-MODE ECHOCARDIOGRAM Name: JAZMYN JUSTICE [facility] [id number] Admission: 03/03/18 Attend Phys: Radha Lainez Discharge: Date of : 42 Date of Service: 03/03/18 1348 Report #: [id number] Great Vessels The aortic root is normal in size. IVC is normal in size and collapses >50% with inspiration. Pericardium There is no pericardial effusion. <Conclusion> LVEF is 50-55%. <ELECTRONICALLY SIGNED> By: Clive Benson MD, FAC 03/03/18 1348 47 Clive Benson MD, [facility] /INF
== END ==
LOC: M.CRD 10:00
DX: I10 Essential (primary) hypertension (principal)

== ENCOUNTER 2018-08-07 13:21 | Emergency (ER) | payer MEDICARE, OTHER ==
[~2018-08-07] VITALS: Ht 175.3 cm; Wt 113.4 kg
[2018-08-07] MEDS ORDERED: LASIX 80 MG TAB80 MG PO (13:58)
[2018-08-07] MEDS ORDERED: ELIQUIS5 MG PO (13:58)
[2018-08-07] MEDS ORDERED: PROTONIX40 M1 PO (13:59)
[2018-08-07] MEDS ORDERED: XANAX1 MG PO (13:59)
[2018-08-07] MEDS ORDERED: MIRALAX17 GM PO (14:00)
[2018-08-07] MEDS ORDERED: ZANAFLEX4 MG PO (14:00)
[2018-08-07] MEDS ORDERED: FLOMAX0.4 MG PO (14:00)
[2018-08-07 14:51] LABS: ABSOLUTE BASOPHILS 0.1 thou/uL (0.0-0.2); ABSOLUTE EOSINOPHILS 0.2 thou/uL (0.0-0.7); ABSOLUTE LYMPHOCYTES 2.1 thou/uL (0.8-5.3); ABSOLUTE MONOCYTES 1.3 thou/uL (0.0-1.2); ABSOLUTE NEUTROPHILS 6.5 thou/uL (1.6-8.1); BASOPHILS 0.9 %; EOSINOPHILS 1.5 %; HEMATOCRIT 46.6 % (42.0-52.0); HEMOGLOBIN 15.6 gm/dL (14.0-18.0); LYMPHOCYTES 20.6 %; MCH 31.2 pg (26.0-34.0); MCHC 33.4 g/dL (28.0-37.0); MCV 93.4 fL (80.0-100.0); MONOCYTES 12.5 %; MPV 8.9 fl. (7.2-11.1); NUCLEATED RBCS 0 /100WBC; PLATELET COUNT* 183 thou/uL (150-400); POLYS 64.5 %; RBC 4.99 mil/uL (4.50-6.00); RDW-CV 14.7 % (10.5-14.5)
[2018-08-07 15:04] LABS: ALBUMIN 3.3 g/dL (3.4-5.0); CALCIUM 8.8 mg/dL (8.5-10.1); CREATININE 1.2 mg/dL (0.6-1.3); POTASSIUM 3.6 mmol/L (3.5-5.1); TOTAL BILIRUBIN 1.2 mg/dL (<0.1-1.0)
[2018-08-07] MEDS ORDERED: AUGMENTIN 875-1 EACH PO (16:37)
[2018-08-07 16:40] VITALS: BP 115/78
[2018-08-12] MEDS ORDERED: NEURONTIN 300300 M1 PO (11:34)
[2018-08-12] MEDS ORDERED: ZANAFLEX4 MG PO ×2 (12:02→12:07)
== END 2018-08-07 16:40 | disposition home or self-care (01) ==
LOC: M.ERS 13:21
PROVIDERS: Nurse Practitioner Family
DX: K11.20 Sialoadenitis, unspecified (principal); I10 Essential (primary) hypertension; G47.30 Sleep apnea, unspecified; Z88.1 Allergy status to other antibiotic agents; Z88.8 Allergy status to other drugs, medicaments and biological substances; Z88.5 Allergy status to narcotic agent; Z91.048 Other nonmedicinal substance allergy status; Z90.49 Acquired absence of other specified parts of digestive tract

== ENCOUNTER → 2018-08-12 | Outpatient (CLI) | payer MEDICARE, OTHER ==
[~2018-08-12] MED LIST changes: +AUGMENTIN 875-1 EACH PO; +ELIQUIS5 MG PO; +FLOMAX0.4 MG PO; +LASIX 80 MG TAB80 MG PO; +MIRALAX17 GM PO; +PROTONIX40 M1 PO; +XANAX1 MG PO; +ZANAFLEX4 MG PO
--- NOTE | ~2018-08-12 | PAINCON ---
[address] [address] PAIN MANAGEMENT CONSULTATION Name: JAZMYN JUSTICE [facility] [id number] Admission: 08/12/18 Attend Phys: Viviane Segundo MD Discharge: Date of : 42 Report #: [id number] THIS REPORT FOR: //name// CC: Viviane Johns DATE OF SERVICE: 08/12/2018 CHIEF COMPLAINT: Back pain. FOLLOWUP HISTORY: The patient is a 78-year-old gentleman who has been followed in the pain clinic because of chronic back pain. As you may recall, he has undergone decompressive lumbar laminectomies with fusion from L3 through S1. He also has rods and pedicle screws in place. He has undergone epidural steroid injections in the past. He recently took a car to his grandson. He drove to the [place] area. With a long drive, he noticed worsening of back pain. He has seen a surgeon. He was told that the possible options would be to continue and lengthen the fusion down to the sacral area. At this juncture, does not feel that he is in need of that procedure. He feels that his medications, Zanaflex is helpful. ALLERGIES: TAPE, CEPHALOSPORINS, MORPHINE, FLAGYL, LEVAQUIN, LYRICA. CURRENT MEDICATIONS: Alprazolam 0.5 mg, vitamin C, fish oil 1000 mg, Lasix 40 mg, Neurontin 300 mg t.i.d., multivitamin without iron, Benicar 20 mg, Prilosec 40 mg, potassium 20 mEq, Psyllium 300 grams, Zantac 300 mg, Ambien, B complex, calcium, vitamin D3, hydrocodone 5/325 and tramadol are helpful. PAIN CLINIC HISTORY/PQRS: 1. History of osteoarthritis of arthritis. The patient has some arthritic changes in his low back area. 2. Height 5 feet 9 inches, weight 258 pounds, BMI is 38.2. 3. Vital signs: Blood pressure 131/82, heart rate 73, respiratory rate 16, room air saturation is 93, temperature 97.4. 4. Pain intensity to a 2/10. 5. Fall risk. The patient has not fallen in the last 3 months. 6. Blood thinner. The patient is not on a blood thinning medication. 7. Hypertension. The patient is being treated for hypertension. 8. Opioid greater than 6 weeks. The patient is not receiving chronic opioid therapy. 9. Risk assessment tool, low for opioid use. 10. Functional assessment tool. 11. Recreational drug use. The patient denies use of recreational drugs. 12. Tobacco: The patient denies use of tobacco products. PHYSICAL EXAMINATION: [place] [address] PAIN MANAGEMENT CONSULTATION Name: JAZMYN JUSTICE Room: [facility]#: [id number] Admission: 08/12/18 Attend Phys: Viviane Segundo MD Discharge: Date of : 42 Report #: [id number] GENERAL: The patient is well-developed, well-nourished white male. Appears somewhat obese. Appears his stated age. He is alert and oriented x 3. His affect is appropriate. Speech is fluent. NECK: Without adenopathy or JVD. HEART: Regular rate. LUNGS: Decreased breath sounds. ABDOMEN: Protuberant. Bowel sounds present. MUSCULOSKELETAL: The patient has a well-healed scar lower portion of his back from L2 down to the sacral area. Upper extremity muscle strength is judged to be 4+/5 for the major muscle groups in the upper extremity. Lower extremity muscle strength judged to be 4+ for the lower extremity. The patient has an antalgic gait. Does walk with use of a cane or a walker. IMPRESSION: 1. Lumbar radiculopathy, history increased after a drive from [place], sitting within the car. 2. Bradycardia, has a pacemaker in place. 3. Bronchitis history. 4. Hypertension. 5. Sleep apnea. 6. Blood clots. 7. Hyperlipidemia. 8. Gastroesophageal reflux. 9. Diverticulitis. 10. History of retinal tear. RECOMMENDATIONS: We discussed treatment options with the patient. At this juncture, we will continue on a conservative approach. The patient would like to try a muscle relaxer. We will consider epidural steroid injection again in the future as needed. Overall, we will continue with conservative approach and a script for Zanaflex 4 mg p.o. b.i.d. has been written. We would like to thank you for letting us to participate in his care. We hope he continues to improve. By: [id number]. Zain Segundo MD /DEE DEE
== END ==
LOC: M.PC 08-05 13:10
DX: M54.16 Radiculopathy, lumbar region (principal); I10 Essential (primary) hypertension; J40 Bronchitis, not specified as acute or chronic; G47.30 Sleep apnea, unspecified; R00.1 Bradycardia, unspecified; D68.9 Coagulation defect, unspecified; E78.5 Hyperlipidemia, unspecified; K21.9 Gastro-esophageal reflux disease without esophagitis; K57.92 Diverticulitis of intestine, part unspecified, without perforation or abscess without bleeding; Z86.69 Personal history of other diseases of the nervous system and sense organs; Z95.0 Presence of cardiac pacemaker; Z79.899 Other long term (current) drug therapy

== ENCOUNTER → 2019-03-03 | Outpatient (CLI) | payer MEDICARE, OTHER ==
--- NOTE | 2019-03-18 09:09 | PAINCON ---
[address] [address] PAIN MANAGEMENT CONSULTATION Name: JAZMYN JUSTICE Room: [facility] RadhaCathi#: [id number] Admission: 03/03/19 Attend Phys: Viviane Segundo MD Discharge: Date of : 42 Report #: [id number] THIS REPORT FOR: //name// CC: Dr. Jun Segundo DATE OF SERVICE: 03/03/2019 CHIEF COMPLAINT: Here for an injection. "I am having pain down my left leg to the level of the calf." HISTORY: The patient is a 78-year-old gentleman who has been seen in the pain clinic in the past because of lumbar radiculopathy. He has undergone epidural injections in the past. He has had back surgery. He does have a fusion from L3 through S1. He has pedicle screws in place with rods. He has noted pain in his low back area. If he sits in a chair and leans forward, pain decreases. When he sits up straight or with prolonged standing, notes pain that radiates down his low back into the left leg, posterior thigh down to the lateral portion of his calf. Notes that this pain is quite problematic. It significantly limits his ability to engage in activities of daily living. He rates it as an 8 today. He has consulted with a surgeon. He has been told that it would be about a 9-hour of surgery with rearranging the instruments in his back. He feels that medications such as Zanaflex are helpful and would like to continue with that. He has used tramadol in the past and found it beneficial. He has returned today with hopes of undergoing an injection to help quell the pain and discomfort he is feeling that is radiating down the L5-S1 area on his left leg. ALLERGIES: TAPE, CEPHALOSPORINS, MORPHINE, FLAGYL, LEVAQUIN, AND LYRICA. CURRENT MEDICATIONS: Alprazolam 0.5 mg, vitamin C, fish oil 1000 mg, Lasix 40 mg, Neurontin 300 mg t.i.d., multivitamins with iron, Benicar 20 mg, Prilosec 40 mg, potassium 20 mEq, Psyllium 300 mg, Zantac 300 mg, Ambien, B complex, calcium, vitamin D3, hydrocodone 5/325, and tramadol have been helpful. PAIN CLINIC ASSESSMENT/PQRS: 1. History of osteoarthritis. The patient has some arthritic changes in his low back area. He is not being treated for rheumatoid arthritis. 2. Height 5 feet 9 inches, weight 255 pounds, BMI is 37.0. 3. Blood pressure 137/77, heart rate 75, respiratory rate 18, room air saturation 92%, temperature 97.7. 4. Pain score 8/10 when standing. 5. Fall risk. The patient has not fallen in the last 3 months. 6. Blood thinner. The patient is on a blood thinning medication. 7. Hypertension. The patient is being treated for hypertension. 8. Opioids greater than 6 weeks. The [place] [address] PAIN MANAGEMENT CONSULTATION Name: JAZMYN JUSTICE Room: [facility]#: [id number] Admission: 03/03/19 Attend Phys: Viviane Segundo MD Discharge: Date of : 42 Report #: [id number] medication. 9. Risk assessment tool, low for opioid use. 10. Functional assessment tool. 11. Recreational drug use. The patient denies use of recreational drugs. 12. Tobacco: The patient denies use of tobacco. PHYSICAL EXAMINATION: GENERAL: The patient is a well-developed, well-nourished, somewhat obese white male, appears his stated age. He is alert and oriented x 3. His affect is appropriate. Speech is fluent. HEENT: Normocephalic, atraumatic. Extraocular eye muscles intact. Sclerae nonicteric. Mucous membranes are moist. NECK: Without adenopathy or JVD. HEART: Regular rate. LUNGS: Decreased breath sounds. ABDOMEN: Protuberant. Bowel sounds present. MUSCULOSKELETAL: The patient has a well-healed scar in the lower portion of his back running from L2 down to the sacral area. Has some soreness of the muscles in the area over the middle portion of his sacrum. Has pain that radiates down the left leg and into the buttocks, posterior thigh, and transitions to the lateral portion of his calf with pain and discomfort, particularly with standing. This can be exacerbated with activity. Walks with a cane or walker. Has an antalgic gait. EXTREMITIES: Upper extremity muscle strength judged to be 5-/5 for the major muscle groups in the upper extremity. Lower extremity, the patient has muscle strength that appears to be 4+/5 for the major muscle groups in the lower extremity. IMPRESSION: 1. Lumbar radiculopathy with history of spinal surgery. 2. Bradycardia, has place a pacemaker in place. 3. Bronchitis history. 4. Hypertension. 5. Sleep apnea. 6. Blood clots. 7. Hyperlipidemia. 8. Gastroesophageal reflux. 9. Diverticulitis. 10. History of retinal tear. RECOMMENDATIONS: We discussed treatment options with the patient. At this juncture, we will proceed with a transforaminal epidural steroid injection in the left side to help decrease the pain and discomfort, which he is experiencing. The risks, which could include but are not limited to infection, worsening of pain, bleeding, and nerve damage were discussed and the [place] [address] PAIN MANAGEMENT CONSULTATION Name: JAZMYN JUSTICE [place] Room: [facility]#: [id number] Admission: 03/03/19 Attend Phys: Viviane Segundo MD Discharge: Date of : 41 Report #: [id number] PROCEDURE NOTE: The patient was taken to the procedure area. He was then assisted in getting on the examination table. His back was then sterilely prepped with a Betadine solution. A 25-gauge needle was then used to anesthetize the area with local anesthetic. A 22-gauge Chiba was then advanced into the area of the left transforaminal area. Fluoroscopy using anterior, posterior, and lateral viewing were implemented. After appropriate placement, a total of 80 mg Depo-Medrol, 40 mg triamcinolone was injected. The patient tolerated the procedure well. There were no complications. He remained in the pain clinic for an appropriate amount of time. A total of 50 seconds fluoroscopy time was used. We would like to thank you for letting us participate in his care. We hope he continues to improve. <ELECTRONICALLY SIGNED> By: Viviane Segundo MD 03/18/19 0909 1343 2312N. MD JOSE Nuñez
== END | disposition home or self-care (01) ==
LOC: M.PC 05:11
DX: M54.16 Radiculopathy, lumbar region (principal); G89.29 Other chronic pain; E78.5 Hyperlipidemia, unspecified; I10 Essential (primary) hypertension; K21.9 Gastro-esophageal reflux disease without esophagitis; Z87.19 Personal history of other diseases of the digestive system; Z95.0 Presence of cardiac pacemaker; Z79.01 Long term (current) use of anticoagulants; Z98.890 Other specified postprocedural states; Z79.899 Other long term (current) drug therapy; Z79.891 Long term (current) use of opiate analgesic; Z88.8 Allergy status to other drugs, medicaments and biological substances

== ENCOUNTER → 2019-07-13 | Outpatient (CLI) | payer MEDICARE, OTHER ==
--- NOTE | 2019-07-13 13:29 | 2DMMODE ---
[place] [address] 2 D/M-MODE ECHOCARDIOGRAM Name: JAZMYN JUSTICE Room: [facility]#: [id number] Admission: 07/13/19 Attend Phys: Radha Lainez Discharge: Date of : 42 Date of Service: 07/13/19 1328 Report #: [id number] THIS REPORT FOR: cc: Bereket Barahona MD, Matthew W. MD Holkins, John M. MD [facility] ~ APPROVED REPORT Study performed: 07/13/2019 10:43:36 EXAM: Comprehensive 2D, Doppler, and color-flow Echocardiogram Patient Location: Out-Patient BSA: 2.24 HR: 82 bpm BP: 120/60 mmHg Other Information Study Quality: Fair Indications Dyspnea 2D Dimensions IVSd: 12.29 (7-11mm) LVOT Diam: 20.55 (18-24mm) LVDd: 41.87 mm PWd: 12.29 (7-11mm) Ascending Ao: 30.56 (22-36mm) LVDs: 24.29 (25-40mm) Aortic Root: 33.46 mm Volumes Left Atrial Volume (Systole) LA ESV Index: 15.10 mL/m2 Aortic Valve AoV Peak Brian.: 1.18 m/s AO Peak Gr.: 5.56 mmHg LVOT Max P.19 mmHg AO Mean Gr.: 3.42 mmHg LVOT Mean P.33 mmHg LVOT Max V: 0.74 m/s AO V2 VTI: 18.20 cm LVOT Mean V: 0.55 m/s ANNAMARIA (VTI): 2.42 cm2 LVOT V1 VTI: 13.29 cm Mitral Valve MV Decel. Time: 372.95 [place] [address] 2 D/M-MODE ECHOCARDIOGRAM Name: JAZMYN JUSTICE Room: [facility]#: [id number] Admission: 07/13/19 Attend Phys: Radha Lainez Discharge: Date of : 42 Date of Service: 07/13/19 1328 Report #: [id number] MV PHT: 108.16 ms MVA (PHT): 2.03 cm2 TDI Medial E' Brian.: 0.06 m/s Lateral E' Brian.: 0.07 m/s Pulmonary Valve PV Peak Brian.: 0.75 m/s PV Peak Gr.: 2.22 mmHg Tricuspid Valve RAP Estimate: 5.00 mmHg TR Peak Gr.: 22.03 mmHg RVSP: 27.03 mmHg PA Pressure: 27.03 mmHg Left Ventricle The left ventricle is normal size. There is normal LV segmental wall motion. There is normal left ventricular wall thickness. Left ventricular systolic function is normal. The left ventricular ejection fraction is within the normal range. LVEF is 50-55%. Grade I - abnormal relaxation pattern. Right Ventricle The right ventricle is normal size. The right ventricular systolic function is normal. Pacemaker lead is present in the right ventricle. Atria The left atrium size is normal. Pacemaker lead is present in the right atrium. Aortic Valve Mild aortic valve sclerosis. No aortic regurgitation is present. There is no aortic valvular stenosis. Mitral Valve Mitral valve leaflets are mildly thickened. There is no mitral valve regurgitation noted. No evidence of mitral valve stenosis. Tricuspid Valve The tricuspid valve is normal in structure. Mild tricuspid regurgitation. Pulmonic Valve The pulmonary valve is normal in structure. There is no pulmonic [place] [address] 2 D/M-MODE ECHOCARDIOGRAM Name: JAZMYN JUSTICE Room: [facility]#: [id number] Admission: 07/13/19 Attend Phys: Radha Lainez Discharge: Date of : 42 Date of Service: 07/13/19 1328 Report #: [id number] Great Vessels The aortic root is normal in size. IVC is normal in size and collapses >50% with inspiration. Pericardium There is no pericardial effusion. <Conclusion> The left ventricle is normal size. There is normal left ventricular wall thickness. Left ventricular systolic function is normal. The left ventricular ejection fraction is within the normal range. LVEF is 50-55%. Grade I - abnormal relaxation pattern. The right ventricle is normal size. The left atrium size is normal. Mild aortic valve sclerosis. No aortic regurgitation is present. There is no aortic valvular stenosis. Mitral valve leaflets are mildly thickened. There is no mitral valve regurgitation noted. No evidence of mitral valve stenosis. The tricuspid valve is normal in structure. Mild tricuspid regurgitation. IVC is normal in size and collapses >50% with inspiration. There is no pericardial effusion. There is normal LV segmental wall motion. <ELECTRONICALLY SIGNED> By: Jun Quintanilla MD, FACC 07/13/19 1328 1328 1328 Jun Quintanilla MD, FACC /INF
== END ==
LOC: M.CRD 10:36
DX: I08.3 Combined rheumatic disorders of mitral, aortic and tricuspid valves (principal)

== ENCOUNTER 2019-12-09 10:26 | Observation (INO) | payer MEDICARE, OTHER ==
[~2019-12-09] VITALS: Ht 175.3 cm; Wt 115.3 kg
[2019-12-09 10:32] VITALS: BP 138/83
[2019-12-09] MEDS ORDERED: BENICAR20 MG PO (10:39)
[2019-12-09] MEDS ORDERED: ASPIR 8181 M1 PO (10:39)
[2019-12-09] MEDS ORDERED: INTERMEZZO3.5 MG PO (10:40)
[2019-12-09] MEDS ORDERED: ACID REDUCER200 MG PO (10:40)
[2019-12-09] MEDS ORDERED: FISH OIL 1,201200 MG PO (10:40)
[2019-12-09] MEDS ORDERED: VITAMIN C500 M2 PO (10:41)
[2019-12-09] MEDS ORDERED: TIZANIDINE HCL4 M1 PO ×2 (10:42)
[2019-12-09 10:57] LABS: ABSOLUTE BASOPHILS 0.1 thou/uL (0.0-0.2); ABSOLUTE EOSINOPHILS 0.1 thou/uL (0.0-0.7); ABSOLUTE LYMPHOCYTES 1.9 thou/uL (0.8-5.3); ABSOLUTE MONOCYTES 0.6 thou/uL (0.0-1.2); ABSOLUTE NEUTROPHILS 5.3 thou/uL (1.6-8.1); BASOPHILS 0.9 %; EOSINOPHILS 0.9 %; HEMATOCRIT 44.9 % (42.0-52.0); HEMOGLOBIN 15.4 gm/dL (14.0-18.0); LYMPHOCYTES 23.5 %; MCH 32.6 pg (26.0-34.0); MCHC 34.3 g/dL (28.0-37.0); MONOCYTES 7.1 %; MPV 7.8 fl. (7.2-11.1); NUCLEATED RBCS 0 /100WBC; PLATELET COUNT* 213 thou/uL (150-400); POLYS 67.6 %; RBC 4.72 mil/uL (4.50-6.00); RDW-CV 13.9 % (10.5-14.5); WBC 7.9 thou/uL (4.0-11.0)
[2019-12-09 11:07] LABS: APTT 28.7 Seconds (25.0-31.3); CALCIUM 8.6 mg/dL (8.5-10.1); INR 1.1; POTASSIUM 4.1 mmol/L (3.5-5.1); PROTIME 11.5 Seconds (9.20-11.50)
[2019-12-09 11:11] LABS: ALBUMIN 3.3 g/dL (3.4-5.0); TOTAL PROTEIN 6.6 g/dL (6.4-8.2)
[2019-12-09 11:40] LABS: URINE BILIRUBIN NEGATIVE (Negative); URINE BLOOD NEGATIVE (Negative); URINE CLARITY CLEAR; URINE COLOR YELLOW; URINE GLUCOSE-RANDOM NEGATIVE (Negative); URINE KETONES NEGATIVE (Negative); URINE LEUKOCYTES-REFLEX NEGATIVE (Negative); URINE NITRITE-REFLEX NEGATIVE (Negative); URINE PROTEIN NEGATIVE (Negative); URINE SPECIFIC GRAVITY >= 1.030 (1.005-1.030); URINE UROBILINOGEN 0.2 E.U./dl (0.2-1.0)
[2019-12-09 15:17] VITALS: BP 150/112
[2019-12-09 15:53] VITALS: BP 127/59
--- NOTE | 2019-12-09 16:07 | EKG ---
[place] [address] ELECTROCARDIOGRAM REPORT Name: JAZMYN JUSTICE Room: [address] IN [facility].#: [id number] Admission: 12/09/19 Attend Phys: Federico August, Discharge: Date of : 42 Date of Service: 12/09/19 1039 Report #: [id number] THIS REPORT FOR: //name// [facility] ED Test Date: 2019-12-09 Test Time: 10:39:46 Pat Name: JAZMYN JUSTICE Department: Room: [facility] Gender: M Electrical & Instrumentation Supervisor: : 1940 Requested By: Calixto Roberts Order Number: [id number] MD: Cliev Benson Measurements Intervals [place] Rate: 80 P: 0 [place]: 68 QRS: 268 QRSD: 182 T: 80 QT: 459 QTc: 530 Interpretive Statements atrial fibrillation with ventricular paced rhythm RBBB Compared to ECG 06/29/2017 08:22:47 atrial fibrillation noted Electronically Signed On 12-09-2019 16:07:09 CDT by Clive Benson [email or web address] <ELECTRONICALLY SIGNED> By: Clive Benson MD, [facility] 12/09/19 1607 1039 1039 lCive Benson MD, [facility] /EPI
[2019-12-09 16:44] VITALS: BP 127/59
--- NOTE | 2019-12-09 17:20 | NUR ---
PATIENT ADMITTED TO ROOM 228 FROM ER. ALERT AND ORIENTED X 4. NO COMPLAINTS OF PAIN. CLEAR LIQUID DIET ORDERED. GI CONSULT IN PLACE FOR BLOODY STOOLS. HOME MEDS LOCKED UP IN PHARMACY. REFUSED SCD'S. NO SKIN BREAKDOWN. UP WITH ASSISTANCE TO BATHROOM. CALL LIGHT WITHIN REACH, WILL CONTINUE TO MONITOR.
[2019-12-09 20:30] VITALS: BP 135/71
[2019-12-10 00:16] VITALS: BP 105/67
[2019-12-10 04:00] VITALS: BP 127/64
[2019-12-10 05:15] LABS: ABSOLUTE LYMPHOCYTES 1.8 thou/uL (0.8-5.3); ABSOLUTE MONOCYTES 0.6 thou/uL (0.0-1.2); ABSOLUTE NEUTROPHILS 4.9 thou/uL (1.6-8.1); BASOPHILS 0.4 %; EOSINOPHILS 0.6 %; HEMATOCRIT 41.6 % (42.0-52.0); HEMOGLOBIN 14.1 gm/dL (14.0-18.0); LYMPHOCYTES 24.2 %; MCH 32.1 pg (26.0-34.0); MCV 94.6 fL (80.0-100.0); MPV 8.5 fl. (7.2-11.1); NUCLEATED RBCS 0 /100WBC; PLATELET COUNT* 199 thou/uL (150-400); POLYS 66.8 %; WBC 7.3 thou/uL (4.0-11.0)
--- NOTE | 2019-12-10 05:15 | NUR ---
PT SLEPT ON AND OFF THIS SHIFT. ASSESSMENT DOCUMENTED. MEDS GIVEN PER E-JUL. IV PATENT, FLUIDS INFUSING MOST OF SHIFT, PT REFUSING NEW BAG THIS MORNING. NO REPORTS OF PAIN. WILL CONTINUE WITH PLAN OF CARE.
[2019-12-10 05:24] LABS: CALCIUM 8.5 mg/dL (8.5-10.1); CREATININE 0.8 mg/dL (0.6-1.3); POTASSIUM 3.8 mmol/L (3.5-5.1)
[2019-12-10 08:08] VITALS: BP 132/75
--- NOTE | 2019-12-10 09:40 | NUR ---
CM SPOKE TO THE PT TO DISCUSS HER HOME SITUATION, MOBILITY STATUS PRIOR TO ADMISSION, AND TO INFORM OF THE ROLE OF CM. PT A&O. PT RESIDES AT HOME WITH SPOUSE, AND DOES ALL COOKING, CLEANING, AND DRIVING. PT ABLE TO BATHE AND DRESS HIMSELF. PT USES A WALKER FOR MOBILITY. PT HAS HX OF HH AFTER A SX A FEW YEARS AGO. PT HAS 0 HX OF SNF. PT PLANS TO RETURN HOME WITH SPOUSE AT D/C. NO NEEDS ANTICIPATED. CM WILL REMAIN AVAILABLE TO ASSIST AND FOLLOW NEEDED.
--- NOTE | 2019-12-10 09:51 | NUR ---
CM SPOKE TO THE PT TO DISCUSS HIS HOME SITUATON, MOBILITY PRIOR TO ADMIT, AND TO INFORM OF THE ROLE OF CM. PT A&O, AND INDEPENDENT WITH ADL'S PRIOR TO ADMIT. PT RESIDES AT [facility] WITH SPOUSE. PT USES A WALKER AT HOME FOR MOBILITY. PT HAS NO HX OF HH OR SNF. PT PLANS TO RETURN HOME AT D/C AND DOES NOT ANTICIPATE ANT D/C PLANNING NEEDS. CM WILL REMAIN AVAILABLE TO ASSIST AND FOLLOW NEEDED.
--- NOTE | 2019-12-10 11:13 | NUR ---
ASSUMED PT CARE AT 0730, PT RESTING IN BED, AOX4 AND HAS NO C/O PAIN OR SHORTNESS OF BREATH BUT WAS UPSET THAT GI HASN'T SEEN HIM YET AND FEELS LIKE HE'S WASTING HIS TIME HERE, WANTS TO GO HOME AND F/U W/ HIS OWN GI OUTPT. PT REFUSED MEDS THIS MORNING. PT STATES HE HAD A BM TODAY AND IT HAD DARK RED BLOOD IN IT BUT THAT HE WANTS TO CALL HIS OWN GI ABOUT THIS, DR NOTIFIED AND GOAL IS TO EITHER WORK W/ STAFF ON POC OR WORK ON DC AND F/U W/ HIS OWN GI OUTPT. AM ASSESSMENT CHARTED, NO MEDS GIVEN, HOURLY ROUNDING OBSERVED, FALL PRECAUTIONS IN PLACE, CALL LIGHT W/IN REACH, WILL CONTINUE POC.
[2019-12-10 14:05] VITALS: BP 127/59
--- NOTE | 2019-12-10 14:51 | NUR ---
DC ORDERS RECEIVED. DC INSTRUCTIONS AND F/U APPTS. GIVEN TO PT, PT COMMUNICATES UNDERSTANDING OF DC TEACHING. IV AND ARCHITECT MARINE REMOVED. PT DC'D W/ ALL PERSONAL BELONGINGS AND PAPERWORK VIA WC W/ NURSING STAFF TO GRANDDAUGHTER'S PERSONAL VEHICLE AT APPROX 1445
== END 2019-12-10 14:45 | disposition home or self-care (01) ==
LOC: M.ERS 10:26 → M.TBA-ER 13:07 → M.2W 13:07
PROVIDERS: Family Medicine; ADMIT Internal Medicine; ATTEND Internal Medicine
DX: Z03.818 Encounter for observation for suspected exposure to other biological agents ruled out (principal); K92.2 Gastrointestinal hemorrhage, unspecified; K57.90 Diverticulosis of intestine, part unspecified, without perforation or abscess without bleeding; G47.33 Obstructive sleep apnea (adult) (pediatric); M19.90 Unspecified osteoarthritis, unspecified site; Z91.19 Patient's noncompliance with other medical treatment and regimen

== ENCOUNTER 2020-11-22 11:31 | Emergency (ER) | payer MEDICARE, OTHER ==
[~2020-11-22] VITALS: Ht 175.3 cm; Wt 115.2 kg
[~2020-11-22 11:31] MED LIST changes: +ACID REDUCER200 MG PO; +ASPIR 8181 M1 PO; +FISH OIL 1,201200 MG PO; +INTERMEZZO3.5 MG PO; +TIZANIDINE HCL4 M1 PO; +VITAMIN C500 M2 PO
[2020-11-22] MEDS ORDERED: ELIQUIS5 MG PO (12:07)
[2020-11-22 12:13] LABS: ABSOLUTE BASOPHILS 0.1 thou/uL (0.0-0.2); ABSOLUTE EOSINOPHILS 0.1 thou/uL (0.0-0.7); ABSOLUTE LYMPHOCYTES 1.2 thou/uL (0.8-5.3); ABSOLUTE MONOCYTES 0.6 thou/uL (0.0-1.2); ABSOLUTE NEUTROPHILS 7.1 thou/uL (1.6-8.1); BASOPHILS 0.7 %; EOSINOPHILS 0.6 %; HEMATOCRIT 47.4 % (42.0-52.0); HEMOGLOBIN 16.4 gm/dL (14.0-18.0); LYMPHOCYTES 13.6 %; MCH 32.7 pg (26.0-34.0); MCHC 34.6 g/dL (28.0-37.0); MCV 94.5 fL (80.0-100.0); MONOCYTES 6.6 %; MPV 7.8 fl. (7.2-11.1); NUCLEATED RBCS 0 /100WBC; PLATELET COUNT* 199 thou/uL (150-400); POLYS 78.5 %; RBC 5.02 mil/uL (4.50-6.00); RDW-CV 13.9 % (10.5-14.5); WBC 9.1 thou/uL (4.0-11.0)
[2020-11-22 12:22] LABS: CALCIUM 8.9 mg/dL (8.5-10.1); CREATININE 1.1 mg/dL (0.6-1.3); POTASSIUM 4.3 mmol/L (3.5-5.1)
[2020-11-22 12:29] LABS: ALBUMIN 3.4 g/dL (3.4-5.0); TOTAL PROTEIN 6.8 g/dL (6.4-8.2)
--- NOTE | 2020-11-22 14:47 | EKG ---
[place] [address] ELECTROCARDIOGRAM REPORT Name: DARIUSZJAZMYN SALAS Room: [facility]#: [id number] Admission: 11/22/20 Attend Phys: Discharge: Date of : 42 Date of Service: 11/22/20 1218 Report #: [id number] THIS REPORT FOR: //name// [facility] ED Test Date: 2020-11-22 Test Time: 12:18:22 Pat Name: JAZMYN JUSTICE Department: Room: Gender: Customer Sales Representative: : 1940 Requested By: Edith Pizarro Order Number: [id number] MD: Bunny Nava Measurements Intervals [place] Rate: 68 P: 0 [place]: QRS: -90 QRSD: 180 T: 84 QT: 489 QTc: 521 Interpretive Statements Ventricularly paced rhythm Interpretation attempted Abnormal EKG Electronically Signed On 11-22-2020 14:47:55 CDT by Bunny Nava [email or web address] <ELECTRONICALLY SIGNED> By: Bunny Nava MD, [facility] 11/22/20 1447 1218 17 Bunny Nava MD, FACC /EPI
[2020-11-22] MEDS ORDERED: ZOFRAN ODT4 MG PO (16:13)
[2020-11-22] MEDS ORDERED: BENTYL 10 MG CA10 M1 PO (16:13)
[2020-11-22 16:31] VITALS: BP 145/65
== END 2020-11-22 16:31 | disposition home or self-care (01) ==
LOC: M.ERS 11:31
PROVIDERS: Nurse Practitioner Family
DX: K82.8 Other specified diseases of gallbladder (principal); I10 Essential (primary) hypertension; G47.30 Sleep apnea, unspecified; Z88.1 Allergy status to other antibiotic agents; Z88.5 Allergy status to narcotic agent; Z90.49 Acquired absence of other specified parts of digestive tract; Z86.718 Personal history of other venous thrombosis and embolism

== ENCOUNTER 2020-12-06 06:05 | Observation (INO) | payer MEDICARE, OTHER ==
[~2020-12-06] VITALS: Ht 175.3 cm; Wt 113.4 kg
--- NOTE | ~2020-12-06 | OP ---
[address] [address] OPERATIVE REPORT Name: JAZMYN JUSTICE Room: [address] [place]#: [id number] Admission: 12/06/20 Attend Phys: Jabari Morales DO Discharge: Date of : 42 Report #: [id number] THIS REPORT FOR: cc: Bereket Barahona MD, Matthew W. MD Kramer, Adam P. DO ~ cc: Bereket Barahona MD DATE OF SURGERY: 12/06/2020 PREOPERATIVE DIAGNOSIS: Chronic cholecystitis and cholelithiasis. POSTOPERATIVE DIAGNOSIS: Chronic cholecystitis and cholelithiasis. PROCEDURE PERFORMED: Laparoscopic cholecystectomy. SURGEON: Jabari Morales DO CO-SURGEON: Jt Alanis, PGY5. RECONCILING CLERK: Caty, PGY1 and [employer] student. ANESTHESIA: General and regional. ESTIMATED BLOOD LOSS: 50 mL. SPECIMEN: Gallbladder. COMPLICATIONS: None. FINDINGS: Acute on chronic cholecystitis with cholelithiasis. HISTORY OF PRESENT ILLNESS: The patient is a 80-year-old male who presented to the office with complaint of right upper quadrant abdominal pain, worse with greasy, fried, fatty foods for many weeks. We discussed laparoscopic cholecystectomy including risks, benefits and alternatives at length, and he agreed to proceed with surgery after consent was obtained. DESCRIPTION OF PROCEDURE: The patient was taken to the operating room and placed in the supine position. SCDs to bilateral lower extremities, safety belt placed across the patient's face. General endotracheal anesthesia was administered by the anesthesia team. 2 Ancef given for surgical prophylaxis. Abdomen was prepped and draped in the standard sterile fashion. Timeout was performed to confirm the patient and procedure. An 11 blade scalpel was used to make an incision just above the umbilicus. Electrocautery was used for hemostasis and dissect down to the level of fascia[place] [id number] OPERATIVE REPORT Name: JAZMYN JUSTICE [place] Room: [address] [place]#: [id number] Admission: 12/06/20 Attend Phys: Jabari Morales, Discharge: Date of : 42 Report #: [id number] encountered, it was scored with electrocautery, grasped between 2 Kochers. Hemostat used to bluntly into the peritoneum. Two stitches of 0 Vicryl placed on either side of the fascia. Yanni trocar placed into the abdomen. Insufflation was initiated without complication. Intra-abdominal contents were inspected. There was significant intra-abdominal omentum covering the liver. We placed first the patient in reverse Trendelenburg, rotated towards the left. We were vaguely able to see the edge of the liver. Three more 5 mm trocars were placed, one subxiphoid, two in the right upper quadrant. We also elected to place a 10 mm trocar down in the right lower quadrant to allow for a fan retractor. We used a fan retractor to retract all the intra-abdominal omentum and colon away from our field of surgery. There were multiple adhesions to the gallbladder. These were taken down carefully with hook electrocautery. Once the gallbladder was free from all adhesions, it was grasped and elevated. The gallbladder was edematous and erythematous consistent with cholecystitis. Attention was turned towards isolating cystic artery and cystic duct. The duct was found laterally. Careful blunt dissection using [place] dissector was used to circumferentially isolate the cystic duct. The cystic artery was found just medial to the duct. This was circumferentially isolated using a [place] dissector. Both structures were clipped with Weck clips, 2 on the proximal cystic duct and 1 on the distal cystic duct and 2 on the cystic artery. Both structures were cut after the critical view of safety was obtained. The gallbladder was then carefully dissected off the bed of the liver using hook electrocautery. Once the gallbladder was completely free of the liver, it was placed in a laparoscopic EndoCatch bag. There was some spillage of bile. This was all irrigated and suctioned free from the abdomen. The patient is on Eliquis for history of AFib and there was some bleeding of the liver bed. This was controlled with electrocautery; however, we elected to place Surgiflo up against the gallbladder fossa to help with hemostasis. Once hemostasis was completely obtained, all instruments were removed from the abdomen. Insufflation was let down and all trocars were removed under direct visualization. The gallbladder and its contents were removed from the supraumbilical trocar site and sent for pathologic evaluation. Supraumbilical fascia was reapproximated with 2 stitches of 0 Vicryl in a [id number] fashion. Subcutaneous tissue was reapproximated with 3-0 Vicryl. All skin incisions reapproximated with 4-0 Monocryl in a subcuticular fashion. Sterile skin glue applied to all incisions. All needle, instrument, sponge counts correct x 2 at the end of the case. The patient was awoken from anesthesia and transferred to PACU in stable condition. By: [id number] Morales DO /nt
[~2020-12-06 06:05] MED LIST changes: +BENTYL 10 MG CA10 M1 PO; +ZOFRAN ODT4 MG PO
[2020-12-06 06:42] LABS: HEMATOCRIT 48.1 % (42.0-52.0); HEMOGLOBIN 16.4 gm/dL (14.0-18.0); MCH 32.2 pg (26.0-34.0); MCV 94.6 fL (80.0-100.0); MPV 7.9 fl. (7.2-11.1); RBC 5.09 mil/uL (4.50-6.00); RDW-CV 13.9 % (10.5-14.5); WBC 6.6 thou/uL (4.0-11.0)
[2020-12-06 07:26] LABS: CALCIUM 8.8 mg/dL (8.5-10.1)
--- NOTE | 2020-12-06 09:55 | EKG ---
[place] [address] ELECTROCARDIOGRAM REPORT Name: JAZMYN JUSTICE Room: [address]#: [id number] Admission: 12/06/20 Attend Phys: Jabari Morales DO Discharge: Date of : 42 Date of Service: 12/06/20711 Report #: [id number] THIS REPORT FOR: //name// [facility] Test Date: 2020-12-06 Test Time: 07:12:58 Pat Name: JAZMYN JUSTICE Department: Room: [facility] Gender: M Inspector Filters: THIEN : 1940 Requested By: Jabari Morales Order Number: [id number] Reading MD: Bunny Nava Measurements Intervals [place] Rate: 78 P: 0 [place]: 58 QRS: -89 QRSD: 185 T: 83 QT: 461 QTc: 526 Interpretive Statements Ventricular-paced complexes No further analysis attempted due to paced rhythm Compared to ECG 11/22/2020 12:18:22 No significant changes Electronically Signed On 12-06-2020 9:54:46 CDT by Bunny Nava [email or web address] <ELECTRONICALLY SIGNED> By: Bunny Nava MD, FACC 12/06/20 0954 1 1 Bunny Nava MD, [facility] /EPI
[2020-12-06 20:38] VITALS: BP 123/67
[2020-12-07 09:15] VITALS: BP 114/70
[2020-12-07 10:34] VITALS: BP 123/67
[2020-12-07 14:06] VITALS: BP 123/67
== END 2020-12-07 12:25 | disposition home or self-care (01) ==
LOC: M.SUR 06:05 → M.TBA 09:38 → M.3W 15:49
PROVIDERS: ADMIT Surgery; ATTEND Surgery
DX: K80.10 Calculus of gallbladder with chronic cholecystitis without obstruction (principal); I10 Essential (primary) hypertension; M54.9 Dorsalgia, unspecified; G89.29 Other chronic pain; Z79.899 Other long term (current) drug therapy